=== PATIENT | male | born 1975 | race Caucasian/White ===

== ENCOUNTER 2022-10-20 12:59 | Outpatient (CLI) | payer OTHER, SELFPAY ==
[2022-10-20 13:57] LABS: Chloride* 96 mmol/L (96-114); Potassium* 4.6 mmol/L (3.6-5.1); Sodium* 132 mmol/L (135-149)
[2022-10-20 14:00] LABS: Alanine Aminotransferase* 80 U/L (4-50); Blood Urea Nitrogen* 12 mg/dL (5-24); Calcium* 8.9 mg/dL (8.4-10.6); Carbon Dioxide* 32 mmol/L (20-32); Cholesterol* 129 mg/dL (90-199); Creatinine* 0.7 mg/dL (0.5-1.5); Estimated Glomerular Filt Rate 114 ml/min; Glucose* 189 mg/dL (60-115); Triglycerides* 121 mg/dL (40-149)
[2022-10-20 14:01] LABS: HDL Cholesterol* 62 mg/dL (>=40); LDL Cholesterol Calculated 43 mg/dL (<100)
== END 2022-10-20 13:00 | disposition home or self-care (01) ==
PROVIDERS: PCP Family Medicine; Visit Provider Family Medicine
DX: I10 Essential (primary) hypertension (principal); E78.5 Hyperlipidemia, unspecified; E11.9 Type 2 diabetes mellitus without complications
CPT/HCPCS: 80048; 80061; 84460

== ENCOUNTER 2022-11-02 08:49 | Inpatient (IN) | payer OTHER, SELFPAY ==
[2022-11-02] VITALS (43 sets, daily range): BP systolic 56–121; BP diastolic 21–104; PULSE 74–191; RESP 14–26; TEMP 36.1–36.8; O2SAT 90–96; BMI 35.9; BMI 36.5
--- NOTE | 2022-11-02 08:59 | CRLHL7_ITS ---
For Patients: As a result of the Cures Act, medical imaging exams and procedure reports are released immediately into your electronic medical record. You may view this report before your referring provider. If you have questions, please contact your health care provider. INDICATION: SHORT OF BREATH TECHNIQUE: Chest 2 views COMPARISON: None FINDINGS: The cardiac silhouette is mildly prominent. Trachea midline. Vascular calcifications. No pleural effusion. No pneumothorax. No fracture. Lung volumes are mildly increased and there is mild bronchial wall thickening. No pulmonary edema. IMPRESSION: Suggestion of bronchiolitis with air-trapping. Dictated by Vincenzo Florentino MD @ 11/02/2022 9:36:43 AM (Electronically Signed)
--- NOTE | 2022-11-02 09:11 | ED.SOB ---
HPI - SOB/Dyspnea General Date Seen: 11/02/22 Chief Complaint: Shortness of Breath/Dyspnea Stated Complaint: A-fib Time Seen by Provider: 11/02/22 08:53 Source: patient Mode of arrival: ambulatory Limitations: no limitations History of Present Illness HPI Narrative: Patient is a 47-year-old gentleman who presents here with 2-3 day history of shortness of breath, he is a little unclear when this exactly started, he went to see his primary care doctor who found that he was in what looked like rapid atrial fibrillation at 169 beats per minute. He was then brought over to the emergency room for further assessment. He tells me he has no chest pain, and can not really tell that his heart is going fast, but feels more fatigued shortness of breath when he is walking around. Tells me he has never before had atrial fibrillation but does note that his legs seem more swollen in the last few days. Has been able to work, as he works construction. He has had no cough associated with this no fevers no chills, does have a history of a dilated aorta, on echo last year. Does drink anywhere from 2-4 beers per day. Smokes 1-1 and half packs per day for the last 20+ years. Also history of diabetes. His mother had a history of valvular problems but he does not remember anyone in the family having any coronary artery disease. Denies any fevers chills or sweats sore throat URI type symptoms, nausea vomiting, abdominal pain, pleuritic pain, recent travel history, past history of DVTs or pulmonary emboli. Related Data Home Medications Medication Instructions Recorded Confirmed sildenafil 100 mg tablet 50 - 100 mg PO PRN 10/20/22 11/02/22 Previous Rx's Medication Instructions Recorded atorvastatin 20 mg tablet 20 mg PO QDAY #90 tabs 10/20/22 losartan 50 mg-hydrochlorothiazide 1 tab PO DAILY #90 tabs 10/20/22 12.5 mg tablet metformin 500 mg tablet,extended 2,000 mg PO QPM #360 tabs 10/20/22 release 24 hr albuterol sulfate 90 mcg/actuation 2 puff inhalation Q4-6H PRN 10/21/22 aerosol inhaler (Ventolin HFA) shortness of breath or wheezing #8.5 grams Allergies Allergy/AdvReac Type Severity Reaction Status Date / Time No Known Drug Allergies Allergy Verified 11/02/22 09:00 Review of Systems Status of ROS: Reports: 10 or more systems reviewed and unremarkable except as noted in History and below [facility] Medical History (Updated 11/02/22 @ 11:45 by Kayla Manzanares MD) Atrial fibrillation with RVR Chronic pain of left ankle COPD (chronic obstructive pulmonary disease) Daily consumption of alcohol Erectile dysfunction (09/25/14) Heart murmur Hyperlipidemia Hypertension (09/13/14) Tobacco abuse (11/22/14) Type 2 diabetes mellitus without complications Surgical History History of foot surgery (09/2015) History of vasectomy (2007) Family History Mother Breast cancer Heart disease Maternal Grandfather Heart disease Brother Cystic fibrosis Diabetes Social History (Updated 11/02/22 @ 11:26 by Kayla Manzanares MD) Narrative: , 2 kids, 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 1 ppd smoker, daily ETOH (5-6 drinks) Smoking Status: Current every day smoker What tobacco products do you use: cigarettes Smoking packs per day: 1 Smoking cigarettes per day: 20.0 Do you use any of these nicotine containing products: None Second hand tobacco smoke exposure: Yes How often do you have a drink containing alcohol: 4 or more times a week How many standard drinks containing alcohol do you have on a typical day: 3 or 4 How often do you have six or more drinks on one occasion: Weekly AUDIT-C Alcohol total score: 8 Non-prescribed substance use: denies use Little interest or pleasure in doing things: not at all Feeling down, depressed, or hopeless: several days service: No Exam Narrative: Exam Narrative: Patient is seen in room 8, he is in no distress, speaking to me in full sentences, vital signs show the rapid heart rate, slightly elevated respiratory rate Pupils are equal round reactive to light, oropharynx is normal, cranial nerves 3-12 are normal, TMs are normal, neck is thick, BMI elevated, significantly into the morbid obese category. Chest is good air entry bilaterally with no crackles, but there is occasional wheezes heard throughout his lungs. Heart sounds are distant faint but S1-S2 is normal, I can not detect with this rapid heart rate any obvious murmurs, no S3-S4, abdomen is soft and obese, no guarding no organomegaly no tenderness noted. Extremities show 1 to 2+ edema bilaterally. Moves all extremities independently and well neurologically intact both upper lower extremities are normal, with normal power proximally and distally normal sensation. Const: Vital Signs, click to edit/add: Vital Signs - 24 hr 11/02/22 08:51 11/02/22 09:21 11/02/22 09:30 Temperature 98.3 F Pulse Rate 158 H 154 H Pulse Rate [Apical ] 151 H Respiratory Rate 26 H Blood Pressure Blood Pressure [Le ft Upper Arm] 121/104 H Pulse Oximetry 93 94 93 Oxygen Delivery Me thod Room Air 11/02/22 09:32 11/02/22 09:45 11/02/22 10:00 Temperature Pulse Rate 164 H 156 H 169 H Pulse Rate [Apical ] Respiratory Rate Blood Pressure 111/98 H Blood Pressure [Le ft Upper Arm] Pulse Oximetry 93 93 93 Oxygen Delivery Me thod 11/02/22 10:02 11/02/22 11:10 11/02/22 10:03 Temperature Pulse Rate 121 H 120 H Pulse Rate [Apical ] 134 H Respiratory Rate 20 Blood Pressure 100/89 Blood Pressure [Le ft Upper Arm] 110/76 Pulse Oximetry 93 95 92 Oxygen Delivery Me thod Room Air 11/02/22 10:15 11/02/22 10:30 11/02/22 10:32 Temperature Pulse Rate 191 H 124 H 103 H Pulse Rate [Apical ] Respiratory Rate Blood Pressure 94/70 Blood Pressure [Le ft Upper Arm] Pulse Oximetry 95 92 93 Oxygen Delivery Me thod 11/02/22 10:36 11/02/22 10:37 11/02/22 10:45 Temperature Pulse Rate 114 H 111 H 102 H Pulse Rate [Apical ] Respiratory Rate Blood Pressure 84/23 L 85/69 L Blood Pressure [Le ft Upper Arm] Pulse Oximetry 93 93 94 Oxygen Delivery Me thod 11/02/22 11:00 11/02/22 11:06 11/02/22 11:13 Temperature Pulse Rate 134 H 108 H 107 H Pulse Rate [Apical ] Respiratory Rate Blood Pressure 70/59 L 100/76 Blood Pressure [Le ft Upper Arm] Pulse Oximetry 95 94 95 Oxygen Delivery Me thod 11/02/22 11:15 Temperature Pulse Rate 108 H Pulse Rate [Apical ] Respiratory Rate Blood Pressure Blood Pressure [Le ft Upper Arm] Pulse Oximetry 90 Oxygen Delivery Me thod Course Reevaluation(s) Reevaluation #1: Initial troponin is negative, his D dimer is slightly elevated, 0.52, I will go ahead and give him another dosage of of diltiazem for a total now 20 mg IV will given a g of magnesium as he is low normal at 1.6, 2 L of fluid, good kidney function, he has improved his rate down to the 121 30s, still in atrial fibrillation. Time: 11:00 Reevaluation #2: Discussed with patient with hospitalist, will admit to the hospital, pressure is now better systolic around 100, hospitalist is requesting PE study, we will go ahead and get this done. Admission to the hospital for ongoing care, Time: 11:48 Vital Signs Vital signs: Initial Vital Signs Temperature 98.3 F 11/02/22 08:51 Temperature Source Temporal Artery Scan 11/02/22 08:51 Pulse Rate 151 H 11/02/22 08:51 Pulse Rhythm 11/02/22 08:51 Respiratory Rate 26 H 11/02/22 08:51 Blood Pressure 121/104 H 11/02/22 08:51 Blood Pressure Mean 109 11/02/22 08:51 Blood Pressure Position Supine 11/02/22 08:51 Pulse Oximetry 93 11/02/22 08:51 Oxygen Delivery Method 11/02/22 08:51 Vital Signs Temperature 98.3 F 11/02/22 08:51 Pulse Rate 151 H 11/02/22 08:51 Respiratory Rate 26 H 11/02/22 08:51 Blood Pressure 121/104 H 11/02/22 08:51 Pulse Oximetry 93 11/02/22 08:51 Oxygen Delivery Method 11/02/22 08:51 Temperature 98.3 F 11/02/22 08:51 Pulse Rate 108 H 11/02/22 11:15 Respiratory Rate 20 11/02/22 11:10 Blood Pressure 100/76 11/02/22 11:13 Pulse Oximetry 90 11/02/22 11:15 Oxygen Delivery Method 11/02/22 11:10 MDM - SOB/Dyspnea MDM Narrative Medical decision making narrative: Life-threatening differential diagnosis includes occluded COPD exacerbation, pulmonary edema, acute coronary syndromes, pulmonary embolism, pneumonia, and pneumothorax. Other differential diagnosis considerations include asthma, bronchitis as well as other etiologies Differential Diagnosis Differential diagnosis: Likely acute exacerbation of chronic obstructive airways disease, congestive heart failure, community acquired pneumonia, asthma with exacerbation and pulmonary embolism Medical Records Attestation: I reviewed the patient's medical records. Lab Data Attestation: I reviewed the patient's lab results. Labs: Lab Results 11/02/22 11/02/22 11/02/22 Range/Units 09:00 09:00 09:00 WBC 5.83 (4.50-11.00) K/uL RBC 4.25 L (4.30-5.90) m/uL Hgb 14.4 (13.5-17.5) gm/dL Hct 43.2 (37.0-53.0) % MCV 102 H (80-100) fL MCH 34 (26-34) pg MCHC 33 (32-36) gm/dL RDW Coeff of Kay 11.8 (11.5-15.5) % Plt Count 212 (140-440) K/uL Neut % (Auto) 72.2 H (42.0-72.0) % Lymph % (Auto) 17.0 L (20-44) % [place] % (Auto) 10.1 (0.0-11.0) % Eos % (Auto) 0.3 (0.0-7.0) % Baso % (Auto) 0.2 (0.0-3.0) % Neut # (Auto) 4.20 (1.7-7.0) K/uL Lymph # (Auto) 1.00 (0.90-2.90) K/uL [place] # (Auto) 0.60 (0.00-0.90) K/UL Eos # (Auto) 0.02 (0.00-0.50) K/uL Baso # (Auto) 0.01 (0.00-0.30) K/uL APTT 28 (23-33) Seconds D-Dimer Quant (PE/DVT) 0.52 H (0.00-0.50) ug/ml Sodium 132 L (135-149) mmol/L Potassium 4.4 (3.6-5.1) mmol/L Chloride 99 (96-114) mmol/L Carbon Dioxide 24 (20-32) mmol/L BUN 18 (5-24) mg/dL Creatinine 0.9 (0.5-1.5) mg/dL Estimated Creat Clear 117.97 Estimated GFR 106 ml/min Glucose 285 H (60-115) mg/dL Calcium 8.8 (8.4-10.6) mg/dL Magnesium (1.5-2.6) mg/dL NT-Pro-B Natriuret Pep 1470 pg/mL TSH (0.270-4.20) uIU/mL SARS-CoV-2 (PCR) (Negative) Influenza Type A (PCR) (Negative) Influenza Type B (PCR) (Negative) RSV (PCR) (Negative) POC Troponin I (0.01-0.04) ng/ml 11/02/22 11/02/22 11/02/22 Range/Units 09:00 09:00 09:00 WBC (4.50-11.00) K/uL RBC (4.30-5.90) m/uL Hgb (13.5-17.5) gm/dL Hct (37.0-53.0) % MCV (80-100) fL MCH (26-34) pg MCHC (32-36) gm/dL RDW Coeff of Kay (11.5-15.5) % Plt Count (140-440) K/uL Neut % (Auto) (42.0-72.0) % Lymph % (Auto) (20-44) % [place] % (Auto) (0.0-11.0) % Eos % (Auto) (0.0-7.0) % Baso % (Auto) (0.0-3.0) % Neut # (Auto) (1.7-7.0) K/uL Lymph # (Auto) (0.90-2.90) K/uL [place] # (Auto) (0.00-0.90) K/UL Eos # (Auto) (0.00-0.50) K/uL Baso # (Auto) (0.00-0.30) K/uL APTT (23-33) Seconds D-Dimer Quant (PE/DVT) (0.00-0.50) ug/ml Sodium (135-149) mmol/L Potassium (3.6-5.1) mmol/L Chloride (96-114) mmol/L Carbon Dioxide (20-32) mmol/L BUN (5-24) mg/dL Creatinine (0.5-1.5) mg/dL Estimated Creat Clear Estimated GFR ml/min Glucose (60-115) mg/dL Calcium (8.4-10.6) mg/dL Magnesium 1.6 (1.5-2.6) mg/dL NT-Pro-B Natriuret Pep pg/mL TSH 3.650 (0.270-4.20) uIU/mL SARS-CoV-2 (PCR) (Negative) Influenza Type A (PCR) (Negative) Influenza Type B (PCR) (Negative) RSV (PCR) (Negative) POC Troponin I 0.02 (0.01-0.04) ng/ml 11/02/22 11/02/22 Range/Units 09:15 11:00 WBC (4.50-11.00) K/uL RBC (4.30-5.90) m/uL Hgb (13.5-17.5) gm/dL Hct (37.0-53.0) % MCV (80-100) fL MCH (26-34) pg MCHC (32-36) gm/dL RDW Coeff of Aky (11.5-15.5) % Plt Count (140-440) K/uL Neut % (Auto) (42.0-72.0) % Lymph % (Auto) (20-44) % [place] % (Auto) (0.0-11.0) % Eos % (Auto) (0.0-7.0) % Baso % (Auto) (0.0-3.0) % Neut # (Auto) (1.7-7.0) K/uL Lymph # (Auto) (0.90-2.90) K/uL [place] # (Auto) (0.00-0.90) K/UL Eos # (Auto) (0.00-0.50) K/uL Baso # (Auto) (0.00-0.30) K/uL APTT (23-33) Seconds D-Dimer Quant (PE/DVT) (0.00-0.50) ug/ml Sodium (135-149) mmol/L Potassium (3.6-5.1) mmol/L Chloride (96-114) mmol/L Carbon Dioxide (20-32) mmol/L BUN (5-24) mg/dL Creatinine (0.5-1.5) mg/dL Estimated Creat Clear Estimated GFR ml/min Glucose (60-115) mg/dL Calcium (8.4-10.6) mg/dL Magnesium (1.5-2.6) mg/dL NT-Pro-B Natriuret Pep pg/mL TSH (0.270-4.20) uIU/mL SARS-CoV-2 (PCR) Negative SARS-CoV-2 (Negative) Influenza Type A (PCR) Negative PCR FLU A (Negative) Influenza Type B (PCR) Negative PCR FLU B (Negative) RSV (PCR) Negative PCR RSV (Negative) POC Troponin I 0.00 L (0.01-0.04) ng/ml Imaging Data CT scan - chest: Attestation: I have reviewed the pertinent imaging results. My impression: Chest x-ray shows cardiomegaly but no other clear findings, I also ordered that chest PE study which showed bilateral pleural effusions I do not see evidence of pulmonary embolism. ECG Data Attestation: I personally reviewed and interpreted this ECG as follows: ECG interpretation date: 11/02/22 Interpretation: EKG shows atrial fibrillation with rapid ventricular response at 167, normal QRS normal QT QT and VT intervals, no acute ST wave changes, noted. I also reviewed the clinic EKG, there is a nonspecific T-wave abnormality notable on both tracings Critical Care Time Critical Care Time Critical Care Time: Yes Attestation: The patient required my highest level preparedness to intervene emergently and I personally spent this critical care time directly and personally managing the patient. This critical care time included: Obtaining a history; Examining the patient; Pulse oximetry; Ordering and reviewing of studies; Arranging urgent treatment with development of a management plan; Evaluation of patients response to treatment; Frequent reassessment discussions with other providers. This critical care time was performed to assess and manage the high probability of imminent life-threatening deterioration that could result in multiorgan failure. It was exclusive of separate billable procedures and treating other patients and teaching time. Total Critical Care Time in Minutes: 60 Discharge Plan Discharge Clinical Impression: Hypotension, Atrial fibrillation with RVR Patient Disposition: Admitted As Inpatient Condition: Stable
[2022-11-02 09:16] LABS: Troponin, Point-of-Care* 0.02 ng/ml (0.01-0.04)
[2022-11-02] MEDS: ASPIRIN 81 MG TAB.CHEW 324 MG PO (09:24)
[2022-11-02] MEDS: 0.9 % SODIUM CHLORIDE 1000 ml 1,000 ML IV ×3 (09:25→21:15)
[2022-11-02 09:26] LABS: Basophils Absolute Auto 0.01 K/uL (0.00-0.30); Basophils Percent Auto 0.2 % (0.0-3.0); Eosinophils Absolute Auto 0.02 K/uL (0.00-0.50); Eosinophils Percent Auto 0.3 % (0.0-7.0); Hematocrit 43.2 % (37.0-53.0); Hemoglobin* 14.4 gm/dL (13.5-17.5); Immature Granulocytes Abs Auto 0.01 K/uL (0.00-0.30); Immature Granulocytes Pct Auto 0.2 %; Mean Corpuscular HGB Conc 33 gm/dL (32-36); Mean Corpuscular Hemoglobin 34 pg (26-34); Mean Corpuscular Volume 102 fL (80-100); Monocytes Percent Auto 10.1 % (0.0-11.0); Neutrophils Percent Auto 72.2 % (42.0-72.0); Platelet Count* 212 K/uL (140-440); RDW Coefficient of Variation % 11.8 % (11.5-15.5); Red Blood Count 4.25 m/uL (4.30-5.90); White Blood Count* 5.83 K/uL (4.50-11.00)
[2022-11-02 09:34] LABS: Slide Review Reflex No
[2022-11-02 09:42] LABS: Chloride* 99 mmol/L (96-114); Sodium* 132 mmol/L (135-149)
[2022-11-02 09:43] LABS: Potassium* 4.4 mmol/L (3.6-5.1)
[2022-11-02] MEDS: dilTIAZem 5 MG/ML inj 10 MG IVP ×2 (09:44→10:20)
[2022-11-02 09:45] LABS: Carbon Dioxide* 24 mmol/L (20-32); Creatinine* 0.9 mg/dL (0.5-1.5); Est. Creatinine Clearance* 117.97; Estimated Glomerular Filt Rate 106 ml/min
[2022-11-02 09:46] LABS: Blood Urea Nitrogen* 18 mg/dL (5-24); Calcium* 8.8 mg/dL (8.4-10.6); Glucose* 285 mg/dL (60-115); Magnesium* 1.6 mg/dL (1.5-2.6)
[2022-11-02 09:55] LABS: Partial Thromboplastin Time* 28 Seconds (23-33)
[2022-11-02 09:57] LABS: D Dimer Quantitative* 0.52 ug/ml (0.00-0.50); NT Pro B Type NatriureticPept* 1470 pg/mL
[2022-11-02 10:26] LABS: PCR FLU A Negative PCR FLU A (Negative); PCR FLU B Negative PCR FLU B (Negative); PCR RSV Negative PCR RSV (Negative)
[2022-11-02 10:28] LABS: SARS PCR* Negative SARS-CoV-2 (Negative)
--- NOTE | 2022-11-02 10:58 | ED.NURSE ---
dr marsh was informed of bp 85/69 p 110. he did speak to naty and his .
--- NOTE | 2022-11-02 11:04 | CRLHL7_ITS ---
For Patients: As a result of the Century Cures Act, medical imaging exams and procedure reports are released immediately into your electronic medical record. You may view this report before your referring provider. If you have questions, please contact your health care provider. INDICATION: Shortness of breath, atrial fibrillation. TECHNIQUE: CT chest PE was acquired with 95 cc Omnipaque 350 IV contrast. COMPARISON: None. FINDINGS: Heart and vasculature: Contrast opacification of the pulmonary arterial tree is adequate. No sign of pulmonary embolism. Prominent heart size.. Thoracic aorta and pulmonary artery are normal in caliber. Aortic arch and coronary artery calcifications Lungs and pleura: Peribronchial thickening, greatest in the right lower lobe. No focal consolidations. Small bilateral pleural effusions with compressive atelectasis. No pneumothorax Lymph nodes/mediastinum: Calcified mediastinal and right hilar granulomas. Mildly prominent mediastinal lymph nodes, likely reactive. No mediastinal, hilar, or axillary adenopathy. Chest wall: No masses. Upper abdomen: No acute or significant findings. Bones: Degenerative changes. IMPRESSION: No pulmonary embolism, as questioned. Small bilateral pleural effusions with compressive atelectasis. Peribronchial thickening, greatest in the right lower lobe which could suggest bronchitis. No focal consolidations. Cardiomegaly with coronary artery calcifications. Please note that all CT scans at this facility use dose modulation, iterative reconstruction, and/or weight-based dosing when appropriate to reduce radiation dose to as low as reasonably achievable. Dictated by Sander Munoz MD @ 11/02/2022 12:16:05 PM (Electronically Signed)
--- NOTE | 2022-11-02 11:07 | ED.NURSE ---
dr marsh aware of bp 70/59 . p121.r 22.
--- NOTE | 2022-11-02 11:12 | ED.NURSE ---
100/76 p 115.
--- NOTE | 2022-11-02 11:25 | PM.IMHP1 ---
Hospitalist- H&P: HPI History of Present Illness Date Seen: 11/02/22 Chief complaint: A-fib Narrative: Wilfrido Sears is a 47 year old male who presented to the emergency room with his after presenting to the clinic for a 2-3 week history of worsening dyspnea. Patient has noted feeling short of breath with activity for a few weeks, saw his PCP earlier this month (pulse at that time noted to be 80) and was given an inhaler. This has not been consistently effective. Over the past few days, dyspnea has worsened and he has difficulty with ADLs, even getting short of breath putting on his boots. In addition, he has noted lower extremity edema bilaterally, up to mid-thigh (began 5 days ago, during a road trip to [place] to watch his daughter play volleyball). No associated chest pain. No orthopnea, + PND. Given how poorly he was feeling, he went to see Dr. Fox in the clinic this morning, who noted that his heart rate was in the 160s and sent patient to the emergency room. ER course and findings: - EKG exhibited a fib with RVR - given diltiazem with improvement in heart rate from 169 --> 120s - troponin negative, D-dimer elevated - CT PE performed with results: IMPRESSION: No pulmonary embolism, as questioned. Small bilateral pleural effusions with compressive atelectasis. Peribronchial thickening, greatest in the right lower lobe which could suggest bronchitis. No focal consolidations. Cardiomegaly with coronary artery calcifications. 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 Smokes 1ppd. Patient notes daily ETOH use, states last drink was , 10/28 (didn't drink over the weekend 09/16 not feeling well. questioned this during H&P, believed patient had ETOH as recently as 11/01). Medical history updated below. PCP is Dr. Bautista locally. Review of Systems Status of ROS: Reports: 10 or more systems reviewed and unremarkable except as noted in History and below [facility] Medical History (Updated 11/02/22 @ 12:41 by Kayla Manzanares MD) Atrial fibrillation with RVR Chronic pain of left ankle COPD (chronic obstructive pulmonary disease) Daily consumption of alcohol Erectile dysfunction (09/25/14) Heart murmur Hyperlipidemia Hypertension (09/13/14) Tobacco abuse (11/22/14) Type 2 diabetes mellitus without complications Surgical History History of foot surgery (09/2015) History of vasectomy (2007) Family History (Updated 11/02/22 @ 12:03 by Kayla Manzanares MD) Mother Breast cancer Heart disease CHF (congestive heart failure) Maternal Grandfather Heart disease Brother Cystic fibrosis Diabetes Social History (Updated 11/02/22 @ 11:26 by Kayla Manzanares MD) Narrative: , 2 kids, 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 1 ppd smoker, daily ETOH (5-6 drinks) Highest level of school completed/degree received: high school graduate Smoking Status: Current every day smoker What tobacco products do you use: cigarettes Smoking packs per day: 1 Smoking cigarettes per day: 20.0 Years smoked: 31 Smoking pack-years: 31.00 Do you use any of these nicotine containing products: None Second hand tobacco smoke exposure: Yes How often do you have a drink containing alcohol: 4 or more times a week Alcohol type: beer How many standard drinks containing alcohol do you have on a typical day: 3 or 4 How often do you have six or more drinks on one occasion: Weekly AUDIT-C Alcohol total score: 8 Non-prescribed substance use: denies use Caffeine: Yes (rarely) Little interest or pleasure in doing things: not at all Feeling down, depressed, or hopeless: several days service: No Meds Home Medications and Allergies Home Medications Medication Instructions Recorded Confirmed Type sildenafil 100 mg tablet 50 - 100 mg PO PRN 10/20/22 11/02/22 History Home Medication Comments: List above is incorrect: patient on 2000mg of Metformin daily (recent increase), Losartan 50-HCTZ 12.5, Atorvastatin 20, prn Albuterol Allergies Allergy/AdvReac Type Severity Reaction Status Date / Time No Known Drug Allergies Allergy Verified 11/02/22 09:00 Exam Narrative: Exam Narrative: GEN: Alert and oriented, answering questions appropriately HEENT: EOMIs bilaterally, no scleral icterus CV: Irregular rhythm, rate in the 110s R: LCTA bilaterally without concerning wheezing Ab: Protuberant, no concerning masses or ttp Ext: 2-3+ pitting edema bilateral LEs Skin: Punctate erythematous rash of LLE, no other concerning findings on exposed skin Neuro: No focal deficits Psych: Appropriate Const: Vital Signs, click to edit/add: Vital Signs - 24 hr 11/02/22 08:51 11/02/22 09:21 11/02/22 09:30 Temperature 98.3 F Pulse Rate 158 H 154 H Pulse Rate [Apical ] 151 H Respiratory Rate 26 H Blood Pressure Blood Pressure [Le ft Upper Arm] 121/104 H Pulse Oximetry 93 94 93 Oxygen Delivery Me thod Room Air 11/02/22 09:32 11/02/22 09:45 11/02/22 10:00 Temperature Pulse Rate 164 H 156 H 169 H Pulse Rate [Apical ] Respiratory Rate Blood Pressure 111/98 H Blood Pressure [Le ft Upper Arm] Pulse Oximetry 93 93 93 Oxygen Delivery Me thod 11/02/22 10:02 11/02/22 11:10 11/02/22 10:03 Temperature Pulse Rate 121 H 120 H Pulse Rate [Apical ] 134 H Respiratory Rate 20 Blood Pressure 100/89 Blood Pressure [Le ft Upper Arm] 110/76 Pulse Oximetry 93 95 92 Oxygen Delivery Me od Room Air 11/02/22 10:15 11/02/22 10:30 11/02/22 10:32 Temperature Pulse Rate 191 H 124 H 103 H Pulse Rate [Apical ] Respiratory Rate Blood Pressure 94/70 Blood Pressure [Le ft Upper Arm] Pulse Oximetry 95 92 93 Oxygen Delivery Me thod 11/02/22 10:36 11/02/22 10:37 11/02/22 10:45 Temperature Pulse Rate 114 H 111 H 102 H Pulse Rate [Apical ] Respiratory Rate Blood Pressure 84/23 L 85/69 L Blood Pressure [Le ft Upper Arm] Pulse Oximetry 93 93 94 Oxygen Delivery Me thod 11/02/22 11:00 11/02/22 11:06 11/02/22 11:13 Temperature Pulse Rate 134 H 108 H 107 H Pulse Rate [Apical ] Respiratory Rate Blood Pressure 70/59 L 100/76 Blood Pressure [Le ft Upper Arm] Pulse Oximetry 95 94 95 Oxygen Delivery Me thod 11/02/22 11:15 Temperature Pulse Rate 108 H Pulse Rate [Apical ] Respiratory Rate Blood Pressure Blood Pressure [Le ft Upper Arm] Pulse Oximetry 90 Oxygen Delivery Me od Hospitalist - H&P: Result Labs Labs: Short CBC 11/02/22 Range/Units 09:00 WBC 5.83 (4.50-11.00) K/uL Hgb 14.4 (13.5-17.5) gm/dL Hct 43.2 (37.0-53.0) % Plt Count 212 (140-440) K/uL BMP 11/02/22 09:00 Sodium 132 L Potassium 4.4 Chloride 99 Carbon Dioxide 24 BUN 18 Creatinine 0.9 Glucose 285 H Calcium 8.8 Assessment and Plan Assessment and plan (1) Atrial fibrillation with RVR: Problem comment: - admit to CCU, start oral Diltiazem, prn IV rate control, monitor BP closely - [id number] score of 3, amenable to anticoagulation after risk/benefit discussion, will initiate Apixaban - TTE 11/02 Status: Acute (2) Hypotension: Problem comment: - noted in ED, combination of a fib with RVR + iatrogenic - no evidence of acute illness, afebrile with normal white count - hold home Losartan-HCTZ Status: Acute (3) Type 2 diabetes mellitus without complications: Problem comment: - last A1C 04/18 (10/2022) - accuchecks and SSI, continue home Metformin Status: Chronic (4) Hyperlipidemia: Problem comment: - continue home statin dose Status: Acute (5) Tobacco abuse: Problem comment: - 1 ppd, amenable to patch during stay Status: Acute (6) Daily consumption of alcohol: Problem comment: - with noted sequela of elevated MCV and elevated LFTs - no history of withdrawal (states last drink 10/28) - CIWAs ordered Status: Acute (7) CHF (congestive heart failure): Problem comment: - likely has an element of CHF exacerbation given AFib and edema - Last TTE 08/2021 with results below, will repeat TTE 11/02/22 Final Impressions: 1. Mildly increased LV size, mildly increased wall thickness, mildly reduced global systolic function with an estimated EF of ~50%. 2. Right ventricular cavity size is normal, global systolic RV function is borderline reduced. 3. The aortic sinus is dilated with a maximal diameter of 3.9 cm. Status: Acute (8) Bronchitis: Problem comment: - RLL on 11/02 imaging - likely viral, will not initiate antibiotics on admission, monitor closely Status: Acute Plan - per above - Apixaban for ppx - requests full code status - updated at bedside, questions answered
--- NOTE | 2022-11-02 11:45 | ED.NURSE ---
report was called to angie israel. did get ct scan done.
[2022-11-02] MEDS: NICOTINE 14 mg PATCH 1 PATCH TRANSDERMA (12:39)
[2022-11-02] MEDS: dilTIAZem 30 MG TABLET PO (12:39)
[2022-11-02] MEDS: THIAMINE 100 MG TABLET PO (12:40)
[2022-11-02] MEDS: ATORVASTATIN 10 MG TABLET 20 MG PO ×2 (13:01→21:41)
[2022-11-02] MEDS: dilTIAZem 30 MG TABLET 60 MG PO ×2 (13:14→17:44)
--- NOTE | 2022-11-02 13:22 | PC.NURSE ---
Addendum entered by Sharee Mata RN 11/02/22 14:09: Diltiazem gtt started at 10 mg/hr see OCT and also vital signs charted. Original Note: End of Shift Note: Patient was admitted from the ER. He was seen previously in the clinic and sent to the ER after noted a high heart rate. Patient is alert and orientated. Has received several doses of diltiazem trying to control his heart rate. Will continue to monitor.
[2022-11-02] MEDS: dilTIAZem HCL 125 MG in 0.9 % SODIUM CHLORIDE 100 ml 100 ML 10 MG IVPB (14:06)
--- NOTE | 2022-11-02 15:50 | RESP.RT ---
Pt seen and evaluated. Of concern pt is using MDI (Albuterol) every 4-6 hours every day. BBS diminished, no wheezing noted. PT is on 1L NC for comfort of Shortness of Breath. Pt has not had a sleep study. CXR and CT noted. Pt up in chair as much as possible. Pt needs a pulmonary work up, with pulmonary function tests to optimize diagnosis and classification with appropriate prescribed medications. Would start on combivent, and a steroid inhaler.
[2022-11-02] MEDS: PERFLUTREN LIPID MICROSPHERES 2 ML VIAL IV (17:19)
[2022-11-02] MEDS: METFORMIN ER 500 MG 2000 MG PO (17:45)
--- NOTE | 2022-11-02 18:43 | PC.NURSE ---
End of Shift:? Pt has been very pleasant. no pain.? Patient is alert and orientated.? he got po diltiazem trying to control his heart rate. .Diltiazem gtt at 10 mg/hr. IV is patent and SL is also patent,. Tele shows A Fib. bs was 229 and he got po and Insulin. he is eating, drinking and voiding. he is up with SBA he is on 1 L NC for SOB inhaler at bedside per md order,. RT did come to see him
[2022-11-02 18:50] LABS: Troponin I* 0.02 ng/mL (0.01-0.04)
[2022-11-02] MEDS: METOPROLOL TARTRATE 1 MG/ML inj 5 MG IVP (20:22)
[2022-11-02] MEDS: ACETAMINOPHEN 325 MG TABLET 975 MG PO (21:26)
[2022-11-02] MEDS: APIXABAN 5 MG TABLET PO (21:41)
[2022-11-02] MEDS: SODIUM CHLORIDE 0.9 % (FLUSH) 10 ML SYRINGE 5 ML IVF ×2 (21:42→22:44)
--- NOTE | 2022-11-02 21:48 | P.IMPN_ITS ---
Progress Note: A&P Assessment and plan (1) Atrial fibrillation with RVR: Problem details: - admit to CCU, start oral Diltiazem, prn IV rate control, monitor BP closely - [id number] score of 3, amenable to anticoagulation after risk/benefit discussion, will initiate Apixaban - TTE 11/02 - I have ordered metoprolol orally with hold parameters and have discontinued oral diltiazem. The diltiazem drip has also been stopped. Status: Acute Subjective Time Seen by Provider: 19:20 Date Seen: 11/02/22 Interval history: Wilfrido has been on dilt drip at 10 this afternoon/evening. He got a dose of 60mg oral diltiazem at 5:45pm. His HR before that was 107, and it was unchanged at 8pm, so I ordered a dose of IV metoprolol 5 mg. His HR immediately came under control to the 70's. BP remained stable until a little over an hour later when his SBP was in the 50's and he was diaphorhetic. His nurse called me and I arrived at his room within 2 minutes. We put [place] in [place], stopped the diltiazem gtt, and gave a 1L NS bolus. He felt better and SBP came up to 100's. He was no longer diaphorhetic. HR remained 70s-80s. Exam Narrative: Exam Narrative: Initially diaphorhetic with slow speech. This resolved quickly and he is now AAOx3 sitting up, talkative, good color, no pallor. CV: Irregularly irregular, not tachycardic. Const: Vital Signs, click to edit/add: Vital Signs - 24 hr 11/02/22 08:51 11/02/22 09:21 11/02/22 09:30 Temperature 98.3 F Pulse Rate 158 H 154 H Pulse Rate [Apical ] 151 H Pulse Rate [Left B rachial] Pulse Rate [Right Radial] Respiratory Rate 26 H Blood Pressure Blood Pressure [Le ft Arm] Blood Pressure [Le ft Upper Arm] 121/104 H Pulse Oximetry 93 94 93 Oxygen Delivery Me thod Room Air Oxygen Flow Rate 11/02/22 09:32 11/02/22 09:45 11/02/22 10:00 Temperature Pulse Rate 164 H 156 H 169 H Pulse Rate [Apical ] Pulse Rate [Left B rachial] Pulse Rate [Right Radial] Respiratory Rate Blood Pressure 111/98 H Blood Pressure [Le ft Arm] Blood Pressure [Le ft Upper Arm] Pulse Oximetry 93 93 93 Oxygen Delivery Me thod Oxygen Flow Rate 11/02/22 10:02 11/02/22 11:10 11/02/22 10:03 Temperature Pulse Rate 121 H 120 H Pulse Rate [Apical ] 134 H Pulse Rate [Left B rachial] Pulse Rate [Right Radial] Respiratory Rate 20 Blood Pressure 100/89 Blood Pressure [Le ft Arm] Blood Pressure [Le ft Upper Arm] 110/76 Pulse Oximetry 93 95 92 Oxygen Delivery Me thod Room Air Oxygen Flow Rate 11/02/22 10:15 11/02/22 10:30 11/02/22 10:32 Temperature Pulse Rate 191 H 124 H 103 H Pulse Rate [Apical ] Pulse Rate [Left B rachial] Pulse Rate [Right Radial] Respiratory Rate Blood Pressure 94/70 Blood Pressure [Le ft Arm] Blood Pressure [Le ft Upper Arm] Pulse Oximetry 95 92 93 Oxygen Delivery Me thod Oxygen Flow Rate 11/02/22 10:36 11/02/22 10:37 11/02/22 10:45 Temperature Pulse Rate 114 H 111 H 102 H Pulse Rate [Apical ] Pulse Rate [Left B rachial] Pulse Rate [Right Radial] Respiratory Rate Blood Pressure 84/23 L 85/69 L Blood Pressure [Le ft Arm] Blood Pressure [Le ft Upper Arm] Pulse Oximetry 93 93 94 Oxygen Delivery Me thod Oxygen Flow Rate 11/02/22 11:00 11/02/22 11:06 11/02/22 11:13 Temperature Pulse Rate 134 H 108 H 107 H Pulse Rate [Apical ] Pulse Rate [Left B rachial] Pulse Rate [Right Radial] Respiratory Rate Blood Pressure 70/59 L 100/76 Blood Pressure [Le ft Arm] Blood Pressure [Le ft Upper Arm] Pulse Oximetry 95 94 95 Oxygen Delivery Me thod Oxygen Flow Rate 11/02/22 11:15 11/02/22 11:58 11/02/22 12:19 Temperature 98.3 F Pulse Rate 108 H Pulse Rate [Apical ] Pulse Rate [Left B rachial] 129 H 129 H Pulse Rate [Right Radial] Respiratory Rate 14 14 Blood Pressure Blood Pressure [Le ft Arm] 101/83 101/83 Blood Pressure [Le ft Upper Arm] Pulse Oximetry 90 94 94 Oxygen Delivery Me thod Nasal Cannula Nasal Cannula Oxygen Flow Rate 1 1 11/02/22 12:52 11/02/22 13:01 11/02/22 15:34 Temperature Pulse Rate 114 H 91 Pulse Rate [Apical ] Pulse Rate [Left B rachial] Pulse Rate [Right Radial] Respiratory Rate Blood Pressure Blood Pressure [Le ft Arm] Blood Pressure [Le ft Upper Arm] Pulse Oximetry Oxygen Delivery Me thod Nasal Cannula Oxygen Flow Rate 1 11/02/22 15:37 11/02/22 15:40 11/02/22 15:41 Temperature 97.0 F L Pulse Rate Pulse Rate [Apical ] Pulse Rate [Left B rachial] 113 H Pulse Rate [Right Radial] 113 H Respiratory Rate 14 18 18 Blood Pressure Blood Pressure [Le ft Arm] 112/98 H Blood Pressure [Le ft Upper Arm] Pulse Oximetry 94 95 Oxygen Delivery Me thod Nasal Cannula Nasal Cannula Oxygen Flow Rate 1 1 11/02/22 19:00 11/02/22 19:30 11/02/22 20:00 Temperature 97.2 F L Pulse Rate Pulse Rate [Apical ] Pulse Rate [Left B rachial] Pulse Rate [Right Radial] 99 101 H 94 Respiratory Rate 18 18 18 Blood Pressure Blood Pressure [Le ft Arm] 117/96 H 98/74 103/69 Blood Pressure [Le ft Upper Arm] Pulse Oximetry 95 95 96 Oxygen Delivery Me thod Nasal Cannula Nasal Cannula Nasal Cannula Oxygen Flow Rate 1 1 1 11/02/22 20:22 11/02/22 20:28 11/02/22 20:31 Temperature Pulse Rate Pulse Rate [Apical ] Pulse Rate [Left B rachial] Pulse Rate [Right Radial] 94 112 H Respiratory Rate 18 16 Blood Pressure Blood Pressure [Le ft Arm] 95/84 94/83 90/67 Blood Pressure [Le ft Upper Arm] Pulse Oximetry 94 93 Oxygen Delivery Me thod Nasal Cannula Nasal Cannula Oxygen Flow Rate 1 1 11/02/22 20:40 11/02/22 20:35 Temperature Pulse Rate Pulse Rate [Apical ] Pulse Rate [Left B rachial] Pulse Rate [Right Radial] 74 74 Respiratory Rate 16 16 Blood Pressure Blood Pressure [Le ft Arm] 84/70 L 96/63 Blood Pressure [Le ft Upper Arm] Pulse Oximetry 96 94 Oxygen Delivery Me thod Nasal Cannula Nasal Cannula Oxygen Flow Rate 1 1 Labs Labs: Laboratory Results - last 24 hr 11/02/22 11/02/22 11/02/22 09:00 09:00 09:00 WBC 5.83 RBC 4.25 L Hgb 14.4 Hct 43.2 MCV 102 H MCH 34 MCHC 33 RDW Coeff of Kay 11.8 Plt Count 212 Neut % (Auto) 72.2 H Lymph % (Auto) 17.0 L [place] % (Auto) 10.1 Eos % (Auto) 0.3 Baso % (Auto) 0.2 Neut # (Auto) 4.20 Lymph # (Auto) 1.00 [place] # (Auto) 0.60 Eos # (Auto) 0.02 Baso # (Auto) 0.01 APTT 28 D-Dimer Quant (PE/DVT) 0.52 H Sodium 132 L Potassium 4.4 Chloride 99 Carbon Dioxide 24 BUN 18 Creatinine 0.9 Estimated Creat Clear 117.97 Estimated GFR 106 Glucose 285 H Calcium 8.8 Magnesium Troponin I NT-Pro-B Natriuret Pep 1470 TSH SARS-CoV-2 (PCR) Influenza Type A (PCR) Influenza Type B (PCR) RSV (PCR) POC Troponin I 11/02/22 11/02/22 11/02/22 09:00 09:00 09:00 WBC RBC Hgb Hct MCV MCH MCHC RDW Coeff of Kay Plt Count Neut % (Auto) Lymph % (Auto) [place] % (Auto) Eos % (Auto) Baso % (Auto) Neut # (Auto) Lymph # (Auto) [place] # (Auto) Eos # (Auto) Baso # (Auto) APTT D-Dimer Quant (PE/DVT) Sodium Potassium Chloride Carbon Dioxide BUN Creatinine Estimated Creat Clear Estimated GFR Glucose Calcium Magnesium 1.6 Troponin I NT-Pro-B Natriuret Pep TSH 3.650 SARS-CoV-2 (PCR) Influenza Type A (PCR) Influenza Type B (PCR) RSV (PCR) POC Troponin I 0.02 11/02/22 11/02/22 11/02/22 09:15 11:00 18:18 WBC RBC Hgb Hct MCV MCH MCHC RDW Coeff of Kay Plt Count Neut % (Auto) Lymph % (Auto) [place] % (Auto) Eos % (Auto) Baso % (Auto) Neut # (Auto) Lymph # (Auto) [place] # (Auto) Eos # (Auto) Baso # (Auto) APTT D-Dimer Quant (PE/DVT) Sodium Potassium Chloride Carbon Dioxide BUN Creatinine Estimated Creat Clear Estimated GFR Glucose Calcium Magnesium Troponin I 0.02 NT-Pro-B Natriuret Pep TSH SARS-CoV-2 (PCR) Negative SARS-CoV-2 Influenza Type A (PCR) Negative PCR FLU A Influenza Type B (PCR) Negative PCR FLU B RSV (PCR) Negative PCR RSV POC Troponin I 0.00 L
[2022-11-02] MEDS: ALBUTEROL INHALER 2 PUFF IH (22:03)
[2022-11-02] MEDS: FUROSEMIDE 10 MG/ML inj 20 MG IVP (22:44)
[2022-11-02] MEDS: METOPROLOL TARTRATE 25 MG TABLET PO (23:32)
[2022-11-03] VITALS (14 sets, daily range): BP systolic 90–136; BP diastolic 65–95; PULSE 85–116; RESP 20–26; TEMP 35.7–36.5; O2SAT 92–99
--- NOTE | 2022-11-03 05:06 | PC.NURSE ---
[id number] Pt had hypotensive episode approx [id number], see Dr Silver's note. Since interventions pt BP stable, mild lightheaded/dizziness with ambulation but denies at rest. After I.V. bolus Pt LS with wheezes, one time lasix administered approx 2245, urinated 1250 out. BLE, 3+ pitting edema, encouraged pt to elevate legs. HR fluctuating between mid 70's and mid 90's, increases to low 100's with ambulation to BR, remains in A-fib. intermittent cough noted, pt denies labored breathing, chest pain, headache, N/V, he does state some SOB at rest, increased SOB with activity, maintains sats >90% on RA. Weight this A.M. showed 4.5 lbs weight Increase since admission on 11/02.
[2022-11-03] MEDS: METOPROLOL TARTRATE 25 MG TABLET PO ×3 (05:36→10:50)
[2022-11-03] MEDS: OMEPRAZOLE 20 MG CAPSULE DR 40 MG PO (06:36)
[2022-11-03 06:41] LABS: HCO3 VBG 29 mmol/L (21-28); PCO2 VBG 57 mmHG (40-50); PO2 VBG 25.5 mmHG (25-47); pH VBG 7.319 (7.32-7.43)
[2022-11-03 06:45] LABS: Basophils Absolute Auto 0.01 K/uL (0.00-0.30); Basophils Percent Auto 0.2 % (0.0-3.0); Eosinophils Absolute Auto 0.04 K/uL (0.00-0.50); Eosinophils Percent Auto 0.7 % (0.0-7.0); Hematocrit 42.5 % (37.0-53.0); Hemoglobin* 13.7 gm/dL (13.5-17.5); Immature Granulocytes Abs Auto 0.01 K/uL (0.00-0.30); Immature Granulocytes Pct Auto 0.2 %; Lymphocytes Absolute Auto 1.26 K/uL (0.90-2.90); Lymphocytes Percent Auto 23.2 % (20-44); Mean Corpuscular HGB Conc 32 gm/dL (32-36); Mean Corpuscular Hemoglobin 34 pg (26-34); Mean Corpuscular Volume 105 fL (80-100); Monocytes Percent Auto 11.8 % (0.0-11.0); Neutrophils Absolute Auto 3.47 K/uL (1.7-7.0); Neutrophils Percent Auto 63.9 % (42.0-72.0); Platelet Count* 198 K/uL (140-440); RDW Coefficient of Variation % 11.9 % (11.5-15.5); Red Blood Count 4.06 m/uL (4.30-5.90); White Blood Count* 5.43 K/uL (4.50-11.00)
[2022-11-03 07:15] LABS: Albumin* 3.8 g/dL (3.3-5.0); Chloride* 99 mmol/L (96-114); Potassium* 4.8 mmol/L (3.6-5.1); Sodium* 131 mmol/L (135-149)
[2022-11-03 07:17] LABS: Slide Review Reflex No
[2022-11-03 07:18] LABS: Alanine Aminotransferase* 43 U/L (4-50); Alkaline Phosphatase* 55 U/L (40-150); Aspartate Amino Transferase* 27 U/L (12-35); Bilirubin Total* 0.6 mg/dL (0.1-1.5); Blood Urea Nitrogen* 19 mg/dL (5-24); Calcium* 8.4 mg/dL (8.4-10.6); Carbon Dioxide* 28 mmol/L (20-32); Creatinine* 0.9 mg/dL (0.5-1.5); Est. Creatinine Clearance* 117.97; Estimated Glomerular Filt Rate 106 ml/min; Glucose* 166 mg/dL (60-115); Total Protein* 6.3 g/dL (6.0-8.3)
[2022-11-03 07:30] LABS: Troponin I* 0.01 ng/mL (0.01-0.04)
[2022-11-03] MEDS: DIGOXIN 250 MCG/ML inj 500 MCG IV (07:43)
[2022-11-03] MEDS: FOLIC ACID 1 MG TABLET PO (08:37)
[2022-11-03] MEDS: APIXABAN 5 MG TABLET PO (08:37)
--- NOTE | 2022-11-03 10:06 | P.IMPN_ITS ---
Progress Note: A&P Assessment and plan (1) Atrial fibrillation with RVR: Problem details: - patient had symptomatic hypotension with diltiazem gtt + TTE findings below; transitioned to digoxin and metoprolol (11/03) with improved rate control, still in afib Status: Acute (2) CHF (congestive heart failure): Problem details: TTE 11/02: Final Impressions: 1. Normal LV size, mildly increased wall thickness, EF of 10 - 20%. 2. Mild RV enlargement, severely reduced systolic function. 3. Mild LA enlargement. 4. The mitral valve is normal, mild regurgitation. 5. RA pressure 15+ mmHg (dilated IVC without respiratory variation). 6. Echo contrast was administrered to enhance visualization of all left ventricular segments. Status: Acute (3) Daily consumption of alcohol: Problem details: - with noted sequela of elevated MCV and elevated LFTs - no history of withdrawal (states last drink 10/28) - CIWAs ordered Status: Acute (4) Bronchitis: Problem details: - RLL on 11/02 imaging - likely viral, normal procalcitonin - will not initiate antibiotics on admission, monitor closely Status: Acute (5) Type 2 diabetes mellitus without complications: Problem details: - last A1C 04/18 (10/2022) - accuchecks and SSI, continue home Metformin Status: Chronic (6) Tobacco abuse: Problem details: - 1 ppd, amenable to patch during stay Status: Acute (7) Hyperlipidemia: Problem details: - continue home statin dose Status: Acute Plan - given persistent a fib with RVR, new HF with EF of 10% (previous EF 50%), reviewed with Cardiology, who recommends transfer for [facility]/Cardioversion - closest hospital with bed availability is [facility]; reviewed with Dr. Spivey at [facility] who accepts the patient in transfer, he left by ALS ambulance 11/03 - updated at bedside, questions answered Subjective Date Seen: 11/03/22 Interval history: Patient had poor rate control yesterday afternoon; diltiazem gtt initiated, then had an episode of symptomatic hypotension, so gtt was discontinued. This morning, Digoxin and scheduled Metoprolol were initiated and patient has tolerated that well. He continues to feel swollen, continues to have intermittent dyspnea, no chest pain. TTE obtained 11/02: Final Impressions: 1. Normal LV size, mildly increased wall thickness, EF of 10 - 20%. 2. Mild RV enlargement, severely reduced systolic function. 3. Mild LA enlargement. 4. The mitral valve is normal, mild regurgitation. 5. RA pressure 15+ mmHg (dilated IVC without respiratory variation). 6. Echo contrast was administrered to enhance visualization of all left ventricular segments. Exam Narrative: Exam Narrative: GEN: Alert and sitting up in bed, wearing oxygen with 3-4 word dyspnea HEENT: EOMIs bilaterally, no scleral icterus CV: irregular rhythm with rate in the 100s, heart sounds distant R: Mild wheezing bilateral apices, decreased air movement throughout Ext: 3+ edema BLE, also has 1+ edema BUEs Neuro: No focal deficits Psych: Appropriate Const: Vital Signs, click to edit/add: Vital Signs - 24 hr 11/02/22 11:10 11/02/22 10:15 11/02/22 10:30 Temperature Pulse Rate 191 H 124 H Pulse Rate [Apical ] 134 H Pulse Rate [Left B rachial] Pulse Rate [Right Radial] Respiratory Rate 20 Blood Pressure Blood Pressure [Le ft Arm] Blood Pressure [Le ft Upper Arm] 110/76 Pulse Oximetry 95 95 92 Oxygen Delivery Me thod Room Air Oxygen Flow Rate 11/02/22 10:32 11/02/22 10:36 11/02/22 10:37 Temperature Pulse Rate 103 H 114 H 111 H Pulse Rate [Apical ] Pulse Rate [Left B rachial] Pulse Rate [Right Radial] Respiratory Rate Blood Pressure 94/70 84/23 L 85/69 L Blood Pressure [Le ft Arm] Blood Pressure [Le ft Upper Arm] Pulse Oximetry 93 93 93 Oxygen Delivery Me thod Oxygen Flow Rate 11/02/22 10:45 11/02/22 11:00 11/02/22 11:06 Temperature Pulse Rate 102 H 134 H 108 H Pulse Rate [Apical ] Pulse Rate [Left B rachial] Pulse Rate [Right Radial] Respiratory Rate Blood Pressure 70/59 L Blood Pressure [Le ft Arm] Blood Pressure [Le ft Upper Arm] Pulse Oximetry 94 95 94 Oxygen Delivery Me thod Oxygen Flow Rate 11/02/22 11:13 11/02/22 11:15 11/02/22 11:58 Temperature Pulse Rate 107 H 108 H Pulse Rate [Apical ] Pulse Rate [Left B rachial] 129 H Pulse Rate [Right Radial] Respiratory Rate 14 Blood Pressure 100/76 Blood Pressure [Le ft Arm] 101/83 Blood Pressure [Le ft Upper Arm] Pulse Oximetry 95 90 94 Oxygen Delivery Me thod Nasal Cannula Oxygen Flow Rate 1 11/02/22 12:19 11/02/22 12:52 11/02/22 13:01 Temperature 98.3 F Pulse Rate 114 H Pulse Rate [Apical ] Pulse Rate [Left B rachial] 129 H Pulse Rate [Right Radial] Respiratory Rate 14 Blood Pressure Blood Pressure [Le ft Arm] 101/83 Blood Pressure [Le ft Upper Arm] Pulse Oximetry 94 Oxygen Delivery Me thod Nasal Cannula Nasal Cannula Oxygen Flow Rate 1 1 11/02/22 15:34 11/02/22 15:37 11/02/22 15:40 Temperature 97.0 F L Pulse Rate 91 Pulse Rate [Apical ] Pulse Rate [Left B rachial] Pulse Rate [Right Radial] Respiratory Rate 14 18 Blood Pressure Blood Pressure [Le ft Arm] 112/98 H Blood Pressure [Le ft Upper Arm] Pulse Oximetry 94 95 Oxygen Delivery Me thod Nasal Cannula Nasal Cannula Oxygen Flow Rate 1 1 11/02/22 15:41 11/02/22 19:00 11/02/22 19:30 Temperature 97.2 F L Pulse Rate Pulse Rate [Apical ] Pulse Rate [Left B rachial] 113 H Pulse Rate [Right Radial] 113 H 99 101 H Respiratory Rate 18 18 18 Blood Pressure Blood Pressure [Le ft Arm] 117/96 H 98/74 Blood Pressure [Le ft Upper Arm] Pulse Oximetry 95 95 Oxygen Delivery Me thod Nasal Cannula Nasal Cannula Oxygen Flow Rate 1 1 11/02/22 20:00 11/02/22 20:22 11/02/22 20:28 Temperature Pulse Rate Pulse Rate [Apical ] Pulse Rate [Left B rachial] Pulse Rate [Right Radial] 94 94 112 H Respiratory Rate 18 18 16 Blood Pressure Blood Pressure [Le ft Arm] 103/69 95/84 94/83 Blood Pressure [Le ft Upper Arm] Pulse Oximetry 96 94 93 Oxygen Delivery Me thod Nasal Cannula Nasal Cannula Nasal Cannula Oxygen Flow Rate 1 1 1 11/02/22 20:31 11/02/22 20:40 11/02/22 20:35 Temperature Pulse Rate Pulse Rate [Apical ] Pulse Rate [Left B rachial] Pulse Rate [Right Radial] 74 74 Respiratory Rate 16 16 Blood Pressure Blood Pressure [Le ft Arm] 90/67 84/70 L 96/63 Blood Pressure [Le ft Upper Arm] Pulse Oximetry 96 94 Oxygen Delivery Me thod Nasal Cannula Nasal Cannula Oxygen Flow Rate 1 1 11/02/22 21:50 11/02/22 21:00 11/02/22 21:11 Temperature Pulse Rate Pulse Rate [Apical ] Pulse Rate [Left B rachial] Pulse Rate [Right Radial] Respiratory Rate 16 Blood Pressure Blood Pressure [Le ft Arm] 97/68 56/21 L 102/68 Blood Pressure [Le ft Upper Arm] Pulse Oximetry Oxygen Delivery Me thod Nasal Cannula Oxygen Flow Rate 1 11/02/22 21:19 11/02/22 21:24 11/02/22 21:20 Temperature Pulse Rate Pulse Rate [Apical ] Pulse Rate [Left B rachial] Pulse Rate [Right Radial] Respiratory Rate Blood Pressure Blood Pressure [Le ft Arm] 90/76 97/78 112/63 Blood Pressure [Le ft Upper Arm] Pulse Oximetry Oxygen Delivery Me thod Oxygen Flow Rate 11/02/22 21:30 11/02/22 22:53 11/02/22 22:53 Temperature Pulse Rate Pulse Rate [Apical ] Pulse Rate [Left B rachial] Pulse Rate [Right Radial] 90 Respiratory Rate 18 16 Blood Pressure Blood Pressure [Le ft Arm] 106/75 112/74 Blood Pressure [Le ft Upper Arm] Pulse Oximetry 93 Oxygen Delivery Me thod Room Air Oxygen Flow Rate 11/02/22 22:53 11/02/22 23:00 11/02/22 23:00 Temperature 97.6 F Pulse Rate 100 Pulse Rate [Apical ] Pulse Rate [Left B rachial] Pulse Rate [Right Radial] 97 Respiratory Rate 16 Blood Pressure Blood Pressure [Le ft Arm] 109/79 Blood Pressure [Le ft Upper Arm] Pulse Oximetry 93 95 Oxygen Delivery Me thod Room Air Room Air Oxygen Flow Rate 11/03/22 00:30 11/03/22 02:51 11/03/22 04:19 Temperature 96.2 F L 97.7 F Pulse Rate Pulse Rate [Apical ] Pulse Rate [Left B rachial] Pulse Rate [Right Radial] 104 H 86 85 Respiratory Rate 20 20 20 Blood Pressure Blood Pressure [Le ft Arm] 112/88 90/78 117/65 Blood Pressure [Le ft Upper Arm] Pulse Oximetry 92 95 95 Oxygen Delivery Me thod Room Air Nasal Cannula Nasal Cannula Oxygen Flow Rate 1 1 11/03/22 05:39 11/03/22 07:30 11/03/22 07:43 Temperature 97.1 F L Pulse Rate 116 H Pulse Rate [Apical ] Pulse Rate [Left B rachial] Pulse Rate [Right Radial] 94 116 H Respiratory Rate 20 22 Blood Pressure Blood Pressure [Le ft Arm] 118/95 H 136/88 Blood Pressure [Le ft Upper Arm] Pulse Oximetry 94 94 Oxygen Delivery Me thod Nasal Cannula Room Air Oxygen Flow Rate 1 11/03/22 08:28 11/03/22 07:45 11/03/22 07:45 Temperature Pulse Rate 107 H Pulse Rate [Apical ] 116 H Pulse Rate [Left B rachial] Pulse Rate [Right Radial] 100 Respiratory Rate 22 Blood Pressure Blood Pressure [Le ft Arm] 110/81 Blood Pressure [Le ft Upper Arm] Pulse Oximetry Oxygen Delivery Me thod Oxygen Flow Rate 11/03/22 07:45 11/03/22 10:00 Temperature Pulse Rate Pulse Rate [Apical ] 109 H Pulse Rate [Left B rachial] Pulse Rate [Right Radial] Respiratory Rate 22 Blood Pressure Blood Pressure [Le ft Arm] 120/90 H Blood Pressure [Le ft Upper Arm] Pulse Oximetry 97 96 Oxygen Delivery Me thod Nasal Cannula Nasal Cannula Oxygen Flow Rate 2 Labs Labs: Laboratory Results - last 24 hr 11/02/22 11/02/22 11/02/22 09:00 09:15 11:00 WBC RBC Hgb Hct MCV MCH MCHC RDW Coeff of Kay Plt Count Neut % (Auto) Lymph % (Auto) [place] % (Auto) Eos % (Auto) Baso % (Auto) Neut # (Auto) Lymph # (Auto) [place] # (Auto) Eos # (Auto) Baso # (Auto) VBG pH VBG pCO2 VBG pO2 VBG HCO3 Sodium Potassium Chloride Carbon Dioxide BUN Creatinine Estimated Creat Clear Estimated GFR Glucose Calcium Total Bilirubin AST ALT Alkaline Phosphatase Troponin I Total Protein Albumin Procalcitonin TSH 3.650 SARS-CoV-2 (PCR) Negative SARS-CoV-2 Influenza Type A (PCR) Negative PCR FLU A Influenza Type B (PCR) Negative PCR FLU B RSV (PCR) Negative PCR RSV POC Troponin I 0.00 L 11/02/22 11/03/22 11/03/22 18:18 06:33 06:33 WBC 5.43 RBC 4.06 L Hgb 13.7 Hct 42.5 MCV 105 H MCH 34 MCHC 32 RDW Coeff of Kay 11.9 Plt Count 198 Neut % (Auto) 63.9 Lymph % (Auto) 23.2 [place] % (Auto) 11.8 H Eos % (Auto) 0.7 Baso % (Auto) 0.2 Neut # (Auto) 3.47 Lymph # (Auto) 1.26 [place] # (Auto) 0.60 Eos # (Auto) 0.04 Baso # (Auto) 0.01 VBG pH VBG pCO2 VBG pO2 VBG HCO3 Sodium 131 L Potassium 4.8 Chloride 99 Carbon Dioxide 28 BUN 19 Creatinine 0.9 Estimated Creat Clear 117.97 Estimated GFR 106 Glucose 166 H Calcium 8.4 Total Bilirubin 0.6 AST 27 ALT 43 Alkaline Phosphatase 55 Troponin I 0.02 0.01 Total Protein 6.3 Albumin 3.8 Procalcitonin 0.10 TSH SARS-CoV-2 (PCR) Influenza Type A (PCR) Influenza Type B (PCR) RSV (PCR) POC Troponin I 11/03/22 06:33 WBC RBC Hgb Hct MCV MCH MCHC RDW Coeff of Kay Plt Count Neut % (Auto) Lymph % (Auto) [place] % (Auto) Eos % (Auto) Baso % (Auto) Neut # (Auto) Lymph # (Auto) [place] # (Auto) Eos # (Auto) Baso # (Auto) VBG pH 7.319 L VBG pCO2 57 H VBG pO2 25.5 VBG HCO3 29 H Sodium Potassium Chloride Carbon Dioxide BUN Creatinine Estimated Creat Clear Estimated GFR Glucose Calcium Total Bilirubin AST ALT Alkaline Phosphatase Troponin I Total Protein Albumin Procalcitonin TSH SARS-CoV-2 (PCR) Influenza Type A (PCR) Influenza Type B (PCR) RSV (PCR) POC Troponin I
[2022-11-03] MEDS: FUROSEMIDE 10 MG/ML inj 20 MG IVP (10:50)
[2022-11-03] MEDS: NICOTINE 14 mg PATCH 1 PATCH TRANSDERMA (10:51)
[2022-11-03] MEDS: THIAMINE 100 MG TABLET PO (10:51)
[2022-11-03] MEDS: SODIUM CHLORIDE 0.9 % (FLUSH) 10 ML SYRINGE 5 ML IVF (10:54)
[2022-11-03] MEDS: ALBUTEROL SULFATE 2.5 MG/3 ML VIAL.NEB NEB (12:53)
[2022-11-03] MEDS: DIGOXIN 250 MCG/ML inj IV (12:54)
--- NOTE | 2022-11-03 13:55 | PC.NURSE ---
shift note: pt up to bathroom with sba. Pt face and ears purple. ears cool to touch. pt placed on oxymask 4L O2 with pt's skin tone turning to normal within 15 mins. Pt has increased sob with minimal activity. RR 22-26/min. LS exp/insp wheezing. pt recieved alb neb prior to transport. Pt denies c.p or pressure. Pt HR 98-120 and irreg. bilat l/e 3+ edema, cool to touch and purplish in color. U/E skin tight and tough in texture. blood sugars 161,240. Pt had 2 large loose BM's. IV x2 patent to rt arm. Nurse to nurse given via phone to Anne-Marie BULLARD @ [facility] prior to transport. Grace paperwork sent with pt on transport.
== END 2022-11-03 12:40 | disposition short-term general hospital (02) | DRG 309 ==
LOC: ED 11:10 → MEDSURG 11:44
PROVIDERS: Admitting Provider Family Medicine; Emergency Provider Family Medicine; PCP Family Medicine; Visit Provider Family Medicine
DX: I48.91 Unspecified atrial fibrillation (principal); I50.20 Unspecified systolic (congestive) heart failure; I11.0 Hypertensive heart disease with heart failure; I95.9 Hypotension, unspecified; E11.9 Type 2 diabetes mellitus without complications; J44.9 Chronic obstructive pulmonary disease, unspecified; E78.5 Hyperlipidemia, unspecified; F17.210 Nicotine dependence, cigarettes, uncomplicated; F10.10 Alcohol abuse, uncomplicated
CPT/HCPCS: 36415; 71046; 71260; 80048; 80053; 82803; 82962; 83735; 83880; 84145; 84443; 84484; 85025; 85379; 85730; 87502; 87634; 87635; 93005; 93306; 94640; 99285; 99291; A9270; J1160; J1940; J3475; J3490; J7030; Q9957; Q9967; S4990

== ENCOUNTER 2022-11-03 13:04 | Outpatient (CLI) | payer OTHER, SELFPAY | END 2022-11-03 13:05 | disposition home or self-care (01) | LOC: AMB 22:22 | PROVIDERS: PCP Family Medicine; Visit Provider Family Medicine | DX: R06.09 Other forms of dyspnea (principal) | CPT/HCPCS: A0425; A0426; A0427 ==

== ENCOUNTER 2022-11-29 20:22 | Outpatient (CLI) | payer OTHER, SELFPAY ==
--- NOTE | 2022-12-08 08:31 | W.PM.SLEEP ---
Sleep Study Details Details Interpreting Provider: Nahun Date of Sleep Study: 11/29/22 Sleep Study Details: STUDY TYPE:? Hospital-based with CPAP titration ? BMI:? 35.1 INDICATION:? Concerns about sleep apnea ? SLEEP SUMMARY:? 3 in 43.5 minutes monitored, REM latency 72.5, arousal index 8.9 RESPIRATORY SUMMARY:? Mean oxygen awake 95, asleep 93, low 83 7.4 minutes oxygen between 80 and 88% AHI 16.6, RDI 19.3, REM AHI 61.2. Note that the entire baseline portion of the study was done in the supine position. CPAP titration was performed. The patient was titrated to a pressure of 8 which included 10.5 minutes of REM stage sleep but was mostly in the nonsupine position. This would be viewed as a moderately successful titration. PERIODIC LIMB MOVEMENTS OF SLEEP:? Pretreatment index 14.6, index with arousal 0.4. Post treatment index was 0 CARDIAC:? Awake 69, asleep 68 beats per minute IMPRESSION:? Moderate obstructive sleep apnea with significant REM dependency. CPAP titration was moderately successful at a pressure of 8 but did not include much sleep in the nonsupine position. RECOMMENDATION: Treatment options would include CPAP AutoSet pressure 7-15, dental appliance and or weight loss and airway expansion surgery. Would favor CPAP trial
== END 2022-11-29 20:23 | disposition home or self-care (01) ==
LOC: SLEEP 20:22
PROVIDERS: PCP Family Medicine; Visit Provider Family Medicine
DX: G47.33 Obstructive sleep apnea (adult) (pediatric) (principal)
CPT/HCPCS: 95811

== ENCOUNTER 2023-03-28 21:31 | Emergency (ER) | payer OTHER, SELFPAY ==
[2023-03-28 21:38] VITALS: BP 150/72; PULSE 87; RESP 16; TEMP 36.2; O2SAT 98; BMI 27.0
--- NOTE | 2023-03-29 14:43 | ED_ITS ---
HPI - General Adult General Chief complaint: Ear/Nose/Throat Problem Stated complaint: bleeding L ear, on blood thinners Time Seen by Provider: 03/28/23 22:02 History of Present Illness HPI narrative: LEFT inner ear spontaneously started bleeding around 2030 this evening. Pt on Eliquis. Takes it daily at night, has not taken it yet tonight. Blood with clots on tissue in ear in triage. Had CPAP machine on when it started bleeding. No known injury 47-year-old man presenting to the emergency department with concern of bleeding from his left ear. He does take Eliquis. Is not feeling lightheaded. This is painless bleeding. They describe this, he is accompanied by daughter, has a tremendous amount of bleeding. No known trauma though he was wearing his CPAP. Does not recall that the straps irritated anything. He has not had congestive symptoms recently. With later questioning and evidenced on physical exam, does use Q-tips regularly. describes having taken a look and it bleeding from everywhere. Seems to indicate concern of the tympanic membrane. and daughter insisted he come in. Related Data Home Medications Medication Instructions Recorded Confirmed sildenafil 100 mg tablet 50 - 100 mg PO Q24H PRN 10/20/22 03/29/23 atorvastatin 20 mg tablet 20 mg PO HS 11/02/22 03/29/23 amiodarone 200 mg tablet 400 mg PO QDAY 11/17/22 03/29/23 apixaban 5 mg tablet 5 mg PO BID 11/17/22 03/29/23 empagliflozin 10 mg tablet 10 mg PO QAM 03/28/23 03/29/23 (Jardiance) Previous Rx's Medication Instructions Recorded albuterol sulfate 90 mcg/actuation 2 puff inhalation Q4-6H PRN 10/21/22 aerosol inhaler (Ventolin HFA) shortness of breath or wheezing #8.5 grams spironolactone 25 mg tablet 25 mg PO QDAY #90 tabs 12/07/22 furosemide 40 mg tablet 40 mg PO BID #180 tabs 12/09/22 losartan 50 mg tablet 50 mg PO QDAY #90 tabs 12/09/22 tadalafil 20 mg tablet (Cialis) 20 mg PO QDAY PRN sexual activity 12/21/22 #10 tabs metoprolol succinate 50 mg 50 mg PO BID #540 tabs 03/01/23 tablet,extended release 24 hr Allergies Allergy/AdvReac Type Severity Reaction Status Date / Time No Known Drug Allergies Allergy Verified 03/29/23 13:10 Review of Systems Status of ROS: Reports: 6 or more systems reviewed and unremarkable except as noted in History and below [facility] Medical History Corns and callosities ?L84 - Corns and callosities (ICD-10) Daily consumption of alcohol ?Z78.9 - Other specified health status (ICD-10) Atrial fibrillation with RVR ?I48.91 - Unspecified atrial fibrillation (ICD-10) COPD (chronic obstructive pulmonary disease) ?J44.9 - Chronic obstructive pulmonary disease, unspecified (ICD-10) Tobacco abuse (11/22/14) ?Z72.0 - Tobacco use (ICD-10) Hypertension (09/13/14) ?I10 - Essential (primary) hypertension (ICD-10) Hyperlipidemia ?E78.5 - Hyperlipidemia, unspecified (ICD-10) Erectile dysfunction (09/25/14) ?N52.9 - Male erectile dysfunction, unspecified (ICD-10) Chronic pain of left ankle ?M25.572 - Pain in left ankle and joints of left foot (ICD-10) ?G89.29 - Other chronic pain (ICD-10) Type 2 diabetes mellitus without complications ?E11.9 - Type 2 diabetes mellitus without complications (ICD-10) Surgical History History of cardiac radiofrequency ablation ?Z98.890 - Other specified postprocedural states (ICD-10) History of vasectomy (2007) ?Z98.52 - Vasectomy status (ICD-10) History of foot surgery (09/2015) ?Z98.890 - Other specified postprocedural states (ICD-10) Family History Mother Breast cancer Heart disease CHF (congestive heart failure) Maternal Grandfather Heart disease Brother Cystic fibrosis Diabetes Social History Narrative: , 2 kids, 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 1 ppd smoker, daily ETOH (5-6 drinks) Highest level of school completed/degree received: high school graduate Smoking Status: Never smoker Do you use any of these nicotine containing products: None Second hand tobacco smoke exposure: Yes How often do you have a drink containing alcohol: 4 or more times a week Alcohol type: beer How many standard drinks containing alcohol do you have on a typical day: 3 or 4 How often do you have six or more drinks on one occasion: Never AUDIT-C Alcohol total score: 5 Non-prescribed substance use: denies use Caffeine: Yes (rarely) Little interest or pleasure in doing things: not at all Feeling down, depressed, or hopeless: several days service: No Exam 2 Narrative: Exam Narrative: Pleasant. NAD. Skin is warm and dry. Neck is supple. Head looks atraumatic. He sounds to have a lightly congested timbre. Skin is generally phil complected. The right ear canal is pristine with normal TM with some redness centrally. The left TM is without inflammation appears to be intact. There is settling blood also within otherwise pristine ear canal. The blood appears to be coagulating. Const: Vital Signs, click to edit/add: Vital Signs - 24 hr 03/28/23 21:38 Temperature 97.1 F L Pulse Rate [Pulse Oximeter] 87 Respiratory Rate 16 Blood Pressure [Ri ght Upper Arm] 150/72 H Pulse Oximetry 98 Oxygen Delivery Me thod Room Air Documenting provider has reviewed patient's vital signs: yes Course Vital Signs Vital signs: Initial Vital Signs Temperature 97.1 F L 03/28/23 21:38 Temperature Source Temporal Artery Scan 03/28/23 21:38 Pulse Rate 87 03/28/23 21:38 Pulse Rhythm Regular 03/28/23 21:38 Pulse Strength 3+ Normal 03/28/23 21:38 Respiratory Rate 16 03/28/23 21:38 Blood Pressure 150/72 H 03/28/23 21:38 Blood Pressure Mean 98 03/28/23 21:38 Blood Pressure Position Sitting 03/28/23 21:38 Pulse Oximetry 98 03/28/23 21:38 Oxygen Delivery Method Room Air 03/28/23 21:38 Vital Signs Temperature 97.1 F L 03/28/23 21:38 Pulse Rate 87 03/28/23 21:38 Respiratory Rate 16 03/28/23 21:38 Blood Pressure 150/72 H 03/28/23 21:38 Pulse Oximetry 98 03/28/23 21:38 Oxygen Delivery Method Room Air 03/28/23 21:38 Temperature 97.1 F L 03/28/23 21:38 Pulse Rate 87 03/28/23 21:38 Respiratory Rate 16 03/28/23 21:38 Blood Pressure 150/72 H 03/28/23 21:38 Pulse Oximetry 98 03/28/23 21:38 Oxygen Delivery Method Room Air 03/28/23 21:38 Medical Decision Making MDM Narrative Medical decision making narrative: I do not think this was a baropressure event as I think was the potential concern. Tympanic membranes appear to be intact. The ear canals of course contain delicate tissue and likely began bleeding in the setting of anticoagulation. Looks to be controlled at this point. See patient discharge plan. Medical Records Medical records reviewed: Yes I reviewed the patient's medical records Discharge Plan Discharge Clinical Impression: Bleeding from left ear, Anticoagulated Patient Disposition: Home, Self-Care Condition: Improved Additional Instructions: I would recommend strongly given that you are anticoagulated especially, avoid putting things into your ear canals like Q-tips. Rather delicate tissue that can be prone to bleeding. Return if won't stop bleeding again. Can use these chux on your pillow tonight. Prescriptions: No Action amiodarone 200 mg tablet 400 mg PO QDAY Patient Comments: will change to one 200mg tab on 11/19/22 apixaban 5 mg tablet 5 mg PO BID sildenafil 100 mg tablet 50 - 100 mg PO Q24H PRN tadalafil [Cialis] 20 mg tablet 20 mg PO QDAY PRN (Reason: sexual activity) Qty: 10 5RF Rx Instructions: administer approximately 30min before sexual activity; do not use more than 1 dose per 24hrs atorvastatin 20 mg tablet 20 mg PO HS Jardiance 10 mg tablet 10 mg PO QAM albuterol sulfate [Ventolin HFA] 90 mcg/actuation HFA aerosol inhaler 2 puff inhalation Q4-6H PRN (Reason: shortness of breath or wheezing) Qty: 8.5 2RF spironolactone 25 mg tablet 25 mg PO QDAY Qty: 90 1RF furosemide 40 mg tablet 40 mg PO BID Qty: 180 1RF losartan 50 mg tablet 50 mg PO QDAY Qty: 90 1RF metoprolol succinate 50 mg tablet extended release 24 hr 50 mg PO BID Qty: 540 1RF Follow Up/Referrals: Vincenzo Bautista MD [Primary Care Provider] - Stand Alone Forms: [employer] Info Instructions
== END 2023-03-28 22:22 | disposition home or self-care (01) ==
PROVIDERS: Emergency Provider Family Medicine; PCP Family Medicine
DX: H92.22 Otorrhagia, left ear (principal)
CPT/HCPCS: 99282; 99283

== ENCOUNTER 2023-03-29 03:50 | Emergency (ER) | payer OTHER, SELFPAY ==
[2023-03-29 04:00] VITALS: BP 131/79; PULSE 88; RESP 18; TEMP 36.7; O2SAT 99; BMI 26.3
--- NOTE | 2023-03-29 04:17 | ED_ITS ---
HPI - General Adult General Time Seen by Provider: 04:17 Date Seen: 03/29/23 Chief complaint: Ear/Nose/Throat Problem Stated complaint: left ear still bleeding Time Seen by Provider: 03/29/23 04:00 Source: patient Mode of arrival: ambulatory Limitations: no limitations History of Present Illness HPI narrative: Patient is a 47-year-old male who was on Eliquis he states for his heart failure, no AFib presenting to the ED left ear bleeding. Patient states he was here earlier in the day and was evaluated. He was discharged home in total sleep on it shortness in follow-up of patient. He states she woke up during his sleep and noticed his left ear was still bleeding. He denies this ever happening before. He has been anticoagulated for the past 6 months. He does states he cleans his ears with Q-tips but states he is not go very deep. Last time he did it was today. Denies lightheadedness or dizziness. Is having no associated pain or hearing loss Related Data Home Medications Medication Instructions Recorded Confirmed sildenafil 100 mg tablet 50 - 100 mg PO Q24H PRN 10/20/22 03/28/23 atorvastatin 20 mg tablet 20 mg PO HS 11/02/22 03/28/23 amiodarone 200 mg tablet 400 mg PO QDAY 11/17/22 03/28/23 apixaban 5 mg tablet 5 mg PO BID 11/17/22 03/28/23 empagliflozin 10 mg tablet 10 mg PO QAM 03/28/23 03/28/23 (Jardiance) Previous Rx's Medication Instructions Recorded albuterol sulfate 90 mcg/actuation 2 puff inhalation Q4-6H PRN 10/21/22 aerosol inhaler (Ventolin HFA) shortness of breath or wheezing #8.5 grams spironolactone 25 mg tablet 25 mg PO QDAY #90 tabs 12/07/22 furosemide 40 mg tablet 40 mg PO BID #180 tabs 12/09/22 losartan 50 mg tablet 50 mg PO QDAY #90 tabs 12/09/22 tadalafil 20 mg tablet (Cialis) 20 mg PO QDAY PRN sexual activity 12/21/22 #10 tabs metoprolol succinate 50 mg 50 mg PO BID #540 tabs 03/01/23 tablet,extended release 24 hr Allergies Allergy/AdvReac Type Severity Reaction Status Date / Time No Known Drug Allergies Allergy Verified 03/28/23 21:45 Review of Systems Narrative: Review of systems is otherwise negative unless stated in the HPI [facility] Medical History (Updated 03/29/23 @ 04:22 by Pawel Lawrence DO) Corns and callosities ?L84 - Corns and callosities (ICD-10) Daily consumption of alcohol ?Z78.9 - Other specified health status (ICD-10) Atrial fibrillation with RVR ?I48.91 - Unspecified atrial fibrillation (ICD-10) COPD (chronic obstructive pulmonary disease) ?J44.9 - Chronic obstructive pulmonary disease, unspecified (ICD-10) Tobacco abuse (11/22/14) ?Z72.0 - Tobacco use (ICD-10) Hypertension (09/13/14) ?I10 - Essential (primary) hypertension (ICD-10) Hyperlipidemia ?E78.5 - Hyperlipidemia, unspecified (ICD-10) Erectile dysfunction (09/25/14) ?N52.9 - Male erectile dysfunction, unspecified (ICD-10) Chronic pain of left ankle ?M25.572 - Pain in left ankle and joints of left foot (ICD-10) ?G89.29 - Other chronic pain (ICD-10) Type 2 diabetes mellitus without complications ?E11.9 - Type 2 diabetes mellitus without complications (ICD-10) Surgical History (Updated 12/05/22 @ 21:07 by Vincenzo Bautista MD) History of cardiac radiofrequency ablation ?Z98.890 - Other specified postprocedural states (ICD-10) History of vasectomy (2007) ?Z98.52 - Vasectomy status (ICD-10) History of foot surgery (09/2015) ?Z98.890 - Other specified postprocedural states (ICD-10) Family History (Updated 11/02/22 @ 12:03 by Kayla Manzanares MD) Mother Breast cancer Heart disease CHF (congestive heart failure) Maternal Grandfather Heart disease Brother Cystic fibrosis Diabetes Social History (Updated 11/20/22 @ 17:50 by Vincenzo Bautista MD) Narrative: , 2 kids, 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 1 ppd smoker, daily ETOH (5-6 drinks) Highest level of school completed/degree received: high school graduate Smoking Status: Never smoker Do you use any of these nicotine containing products: None Second hand tobacco smoke exposure: Yes How often do you have a drink containing alcohol: 4 or more times a week Alcohol type: beer How many standard drinks containing alcohol do you have on a typical day: 3 or 4 How often do you have six or more drinks on one occasion: Never AUDIT-C Alcohol total score: 5 Non-prescribed substance use: denies use Caffeine: Yes (rarely) Little interest or pleasure in doing things: not at all Feeling down, depressed, or hopeless: several days service: No Exam Narrative: Exam Narrative: Const: Well-nourished, Well-developed, in mild distress Eyes: PERRL, no conjunctival injection, and symmetrical lids ENMT: Atraumatic external nose and ears. Left ear does have blood around the external auditory canal. Using the otoscope I did remove a blood clot from the ear. Tympanic membranes look normal bilaterally. Left ear does appear to have a slowly oozing cut within the deeper portion of the external auditory canal. MSK:Extremities w/o deformity, Normal Active ROM Skin: Warm, Dry. No rashes or lesions. Neuro: Normal Muscle tone, No focal neurological deficits. Psych: Awake, Alert, & Oriented x3. Appropriate mood and affect. Const: Vital Signs, click to edit/add: Vital Signs - 24 hr 03/29/23 04:00 Temperature 98.1 F Pulse Rate [Left P ulse Oximeter] 88 Respiratory Rate 18 Blood Pressure [Ri ght Upper Arm] 131/79 Pulse Oximetry 99 Oxygen Delivery Me thod Room Air Course Vital Signs Vital signs: Initial Vital Signs Temperature 98.1 F 03/29/23 04:00 Temperature Source Temporal Artery Scan 03/29/23 04:00 Pulse Rate 88 03/29/23 04:00 Respiratory Rate 18 03/29/23 04:00 Blood Pressure 131/79 03/29/23 04:00 Blood Pressure Mean 96 03/29/23 04:00 Blood Pressure Position Sitting 03/29/23 04:00 Pulse Oximetry 99 03/29/23 04:00 Oxygen Delivery Method Room Air 03/29/23 04:00 Vital Signs Temperature 98.1 F 03/29/23 04:00 Pulse Rate 88 03/29/23 04:00 Respiratory Rate 18 03/29/23 04:00 Blood Pressure 131/79 03/29/23 04:00 Pulse Oximetry 99 03/29/23 04:00 Oxygen Delivery Method Room Air 03/29/23 04:00 Temperature 98.1 F 03/29/23 04:00 Pulse Rate 88 03/29/23 04:00 Respiratory Rate 18 03/29/23 04:00 Blood Pressure 131/79 03/29/23 04:00 Pulse Oximetry 99 03/29/23 04:00 Oxygen Delivery Method Room Air 03/29/23 04:00 Medical Decision Making MDM Narrative Medical decision making narrative: Patient is a 47-year-old male presenting for left ear bleeding. He is on Eliquis. Denies ever having this happen before. Was seen earlier today for same symptoms and was discharged home. The bleeding was still occurring and he was concerned. Is not having any systemic symptoms at this time. Patient noticed a moderate amount of blood on the chart which he brought with. On exam I did see an area of the external auditory canal there was bleeding but was too deep for cauterization in the emergency department. It is slowly oozing and thus I feel he is safe for discharge with outpatient follow-up with ENT. He will be discharged home. Discharge Plan Discharge Clinical Impression: Bleeding from left ear Condition: Stable Instructions: Earache (ED) Additional Instructions: Follow-up with an irrigation specialist. Return for new worsening symptoms Prescriptions: No Action amiodarone 200 mg tablet 400 mg PO QDAY Patient Comments: will change to one 200mg tab on 11/19/22 apixaban 5 mg tablet 5 mg PO BID sildenafil 100 mg tablet 50 - 100 mg PO Q24H PRN tadalafil [Cialis] 20 mg tablet 20 mg PO QDAY PRN (Reason: sexual activity) Qty: 10 5RF Rx Instructions: administer approximately 30min before sexual activity; do not use more than 1 dose per 24hrs atorvastatin 20 mg tablet 20 mg PO HS Jardiance 10 mg tablet 10 mg PO QAM albuterol sulfate [Ventolin HFA] 90 mcg/actuation HFA aerosol inhaler 2 puff inhalation Q4-6H PRN (Reason: shortness of breath or wheezing) Qty: 8.5 2RF spironolactone 25 mg tablet 25 mg PO QDAY Qty: 90 1RF furosemide 40 mg tablet 40 mg PO BID Qty: 180 1RF losartan 50 mg tablet 50 mg PO QDAY Qty: 90 1RF metoprolol succinate 50 mg tablet extended release 24 hr 50 mg PO BID Qty: 540 1RF Follow Up/Referrals: Vincenzo Bautista MD [Primary Care Provider] - Stand Alone Forms: [email or web address] Info Instructions
== END 2023-03-29 04:29 | disposition home or self-care (01) ==
PROVIDERS: Emergency Provider Student in an Organized Health Care Education/Training Program; PCP Family Medicine
DX: H92.22 Otorrhagia, left ear (principal)
CPT/HCPCS: 99282

== ENCOUNTER 2023-05-03 12:53 | Outpatient (CLI) | payer OTHER, SELFPAY ==
[2023-05-03 13:49] LABS: Alanine Aminotransferase* 40 U/L (4-50); Cholesterol* 157 mg/dL (90-199); HDL Cholesterol* 51 mg/dL (>=40); LDL Cholesterol Calculated 79 mg/dL (<100); Triglycerides* 134 mg/dL (40-149)
== END 2023-05-03 12:54 | disposition home or self-care (01) ==
PROVIDERS: PCP Family Medicine; Visit Provider Family Medicine
DX: E78.5 Hyperlipidemia, unspecified (principal); E11.9 Type 2 diabetes mellitus without complications
CPT/HCPCS: 80061; 84460

== ENCOUNTER 2023-07-06 09:42 | Emergency (ER) | payer OTHER, SELFPAY ==
[2023-07-06 09:48] VITALS: BP 184/82; PULSE 77; RESP 16; TEMP 36.9; O2SAT 98; BMI 27.0
--- NOTE | 2023-07-06 10:06 | CRLHL7_ITS ---
For Patients: As a result of the Century Cures Act, medical imaging exams and procedure reports are released immediately into your electronic medical record. You may view this report before your referring provider. If you have questions, please contact your health care provider. HISTORY: Diabetic patient with foot wound. Prior surgery. TECHNIQUE: Intravenous contrast enhanced CT of the right foot. 103 mL of Isovue-370 intravenous contrast was administered. COMPARISON: No prior. FINDINGS: There is a soft tissue wound involving the plantar forefoot with associated superficial subcutaneous collection. The collection measures approximately 3.3 x 2.1 x 0.9 cm in size and contains small locules of gas. No radiopaque foreign body within the plantar soft tissues. No gas tracking remote from that area. No adjacent acute bone destruction to suggest acute osteomyelitis. Postsurgical changes involving the 1st metatarsal bone. First metatarsal bone appears healed with mild deformity. There is lucency adjacent to the head of a screw at the medial 1st metatarsal head level on coronal image #44 series 6 likely indicating loosening. There is arthrosis of the 1st MTP joint space. The dorsal plate focally abuts the articular surface of the base of the 1st metatarsal bone. Degenerative changes of the ankle joint space with subchondral cystic change involving the talar dome likely indicating grade 4 cartilage loss. Plantar calcaneal spur. Sequelae of remote injury of the interosseous membrane between the distal tibia and fibula. IMPRESSION: 1. Plantar forefoot ulcer with associated 3.3 cm superficial subcutaneous collection that contains gas. 2. No adjacent bone destruction to suggest osteomyelitis. 3. Postsurgical changes involving the 1st metatarsal bone. Lucency adjacent to the head of a screw at the medial metatarsal head level suggesting loosening. The 1st metatarsal bone appears healed with mild deformity. Arthrosis of the 1st MTP joint space. Please note that all CT scans at this facility use dose modulation, iterative reconstruction, and/or weight-based dosing when appropriate to reduce radiation dose to as low as reasonably achievable. Dictated by Richie Neal MD @ 07/06/2023 11:44:53 AM (Electronically Signed)
--- NOTE | 2023-07-06 10:28 | ED_ITS ---
HPI - General Adult General Date Seen: 07/06/23 Chief complaint: Extremity Pain/Injury, Lower Stated complaint: Diabetic ulcer R foot Time Seen by Provider: 07/06/23 09:57 Source: patient Mode of arrival: ambulatory Limitations: no limitations History of Present Illness HPI narrative: Patient is a 47-year-old male with history of diabetes. He tells me that he had seen Dr. Aleman in the past for a callus area on his right foot, plantar surface. He says this was shaved down and reportedly was healing well. He was supposed have a follow-up appointment which he says that Dr. Aleman rescheduled and then the rescheduled appointment was canceled due to Dr. Aleman's knee surgery. He has not seen anybody else about his foot. He notes it has seemed to be getting more firm on the bottom of his foot and then today he noted drainage. He does not have good sensation in that foot but does have some burning pain in his ankle. Notes history of prior fracture and hardware in the right foot. He has not had fevers or other systemic complaints. He does smoke, drinks daily. Related Data Home Medications Medication Instructions Recorded Confirmed sildenafil 100 mg tablet 50 - 100 mg PO Q24H PRN 10/20/22 05/12/23 atorvastatin 20 mg tablet 20 mg PO HS 11/02/22 05/12/23 apixaban 5 mg tablet 5 mg PO BID 11/17/22 05/12/23 empagliflozin 10 mg tablet 10 mg PO QAM 03/28/23 05/12/23 (Jardiance) furosemide 20 mg tablet 20 mg PO DAILY 05/03/23 05/12/23 pantoprazole 40 mg tablet,delayed 40 mg PO DAILY 05/03/23 05/12/23 release Previous Rx's Medication Instructions Recorded albuterol sulfate 90 mcg/actuation 2 puff inhalation Q4-6H PRN 10/21/22 aerosol inhaler (Ventolin HFA) shortness of breath or wheezing #8.5 grams tadalafil 20 mg tablet (Cialis) 20 mg PO QDAY PRN sexual activity 12/21/22 #10 tabs metoprolol succinate 50 mg 50 mg PO BID #540 tabs 03/01/23 tablet,extended release 24 hr losartan 50 mg tablet 50 mg PO QDAY #90 tabs 06/08/23 ciprofloxacin HCl 500 mg tablet 500 mg PO Q12H #14 tabs 07/06/23 clindamycin HCl 300 mg capsule 300 mg PO QID #28 caps 07/06/23 (Cleocin HCl) Allergies Allergy/AdvReac Type Severity Reaction Status Date / Time No Known Drug Allergies Allergy Verified 07/06/23 09:53 Review of Systems Status of ROS: Reports: 10 or more systems reviewed and unremarkable except as noted in History and below PFSH [facility] Medical History (Updated 07/06/23 @ 12:54 by Corie Cadet MD) Atrial fibrillation ?I48.91 - Unspecified atrial fibrillation (ICD-10) Corns and callosities ?L84 - Corns and callosities (ICD-10) Daily consumption of alcohol ?Z78.9 - Other specified health status (ICD-10) Atrial fibrillation with RVR ?I48.91 - Unspecified atrial fibrillation (ICD-10) COPD (chronic obstructive pulmonary disease) ?J44.9 - Chronic obstructive pulmonary disease, unspecified (ICD-10) Tobacco abuse (11/22/14) ?Z72.0 - Tobacco use (ICD-10) Hypertension (09/13/14) ?I10 - Essential (primary) hypertension (ICD-10) Hyperlipidemia ?E78.5 - Hyperlipidemia, unspecified (ICD-10) Erectile dysfunction (09/25/14) ?N52.9 - Male erectile dysfunction, unspecified (ICD-10) Chronic pain of left ankle ?M25.572 - Pain in left ankle and joints of left foot (ICD-10) ?G89.29 - Other chronic pain (ICD-10) Type 2 diabetes mellitus without complications ?E11.9 - Type 2 diabetes mellitus without complications (ICD-10) Surgical History (Updated 05/03/23 @ 22:54 by Vincenzo Bautista MD) History of cardiac radiofrequency ablation ?Z98.890 - Other specified postprocedural states (ICD-10) History of vasectomy (2007) ?Z98.52 - Vasectomy status (ICD-10) History of foot surgery (09/2015) ?Z98.890 - Other specified postprocedural states (ICD-10) Family History Mother Breast cancer Heart disease CHF (congestive heart failure) Maternal Grandfather Heart disease Brother Cystic fibrosis Diabetes Social History Narrative: , 2 kids, 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 1 ppd smoker, daily ETOH (5-6 drinks) Highest level of school completed/degree received: high school graduate Smoking Status: Never smoker Do you use any of these nicotine containing products: None Second hand tobacco smoke exposure: Yes How often do you have a drink containing alcohol: 4 or more times a week Alcohol type: beer How many standard drinks containing alcohol do you have on a typical day: 3 or 4 How often do you have six or more drinks on one occasion: Never AUDIT-C Alcohol total score: 5 Non-prescribed substance use: denies use Caffeine: Yes (rarely) Little interest or pleasure in doing things: not at all Feeling down, depressed, or hopeless: several days service: No Exam Narrative: Exam Narrative: Vital signs as noted above. In general, an alert, nontoxic male. Head: Normocephalic, atraumatic. Eyes: Pupils are equal reactive. Extraocular movements are full. Conjunctivae are normal. ENT: Mucous membranes are moist. Throat is normal. Neck: Supple without lymphadenopathy. Heart: Regular rate and rhythm. No murmur or rub. Lungs: Clear bilaterally. No increased work of breathing, crackles or wheezes. Abdomen: Soft and nontender. No organomegaly. Extremities: Pulses felt in both feet. Paucity of hair growth. On the plantar surface of the right foot there is an area of induration and yellow discoloration of the skin. There is an opening in what appears to be a previously debrided area which drains purulent bloody fluid with palpation of the foot. There is no significant erythema, no lymphangitic streaking, no significant edema. Capillary refill is brisk, sensation significantly decreased over the bottom of the foot. Neurologic: Patient is alert and oriented to person and place. Speech is fluent. Face is symmetric. Moves all extremities equally. Affect: Normal. Skin: Warm and dry. Well perfused. Const: Vital Signs, click to edit/add: Vital Signs - 24 hr 07/06/23 09:48 Temperature 98.5 F Pulse Rate [Right Pulse Oximeter] 77 Respiratory Rate 16 Blood Pressure [Ri ght Upper Arm] 184/82 H Pulse Oximetry 98 Oxygen Delivery Me thod Room Air Course Course ED Course: I elected to do some labs and do CT scan to evaluate better this fluid collection, make sure was not tracking toward his hardware and evaluate for possible osteomyelitis. I also checked labs, these are reassuring with a white blood cell count of 8.5 minimally abnormal diff with the left shift of 73%. Metabolic panel was unremarkable, blood sugar is 126, CRP mildly elevated at 1.9. CT scan by my review showed a fluid collection in the expected area on the plantar aspect of the foot, this appears to be well circumscribed without tracking deeper into the foot. There is some lucency around his hardware as well as some gas noted in the fluid collection. Radiology read is as follows:FINDINGS: There is a soft tissue wound involving the plantar forefoot with associated superficial subcutaneous collection. The collection measures approximately 3.3 x 2.1 x 0.9 cm in size and contains small locules of gas. No radiopaque foreign body within the plantar soft tissues. No gas tracking remote from that area. No adjacent acute bone destruction to suggest acute osteomyelitis. Postsurgical changes involving the 1st metatarsal bone. First metatarsal bone appears healed with mild deformity. There is lucency adjacent to the head of a screw at the medial 1st metatarsal head level on coronal image #44 series 6 likely indicating loosening. There is arthrosis of the 1st MTP joint space. The dorsal plate focally abuts the articular surface of the base of the 1st metatarsal bone. Degenerative changes of the ankle joint space with subchondral cystic change involving the talar dome likely indicating grade 4 cartilage loss. Plantar calcaneal spur. Sequelae of remote injury of the interosseous membrane between the distal tibia and fibula. IMPRESSION: 1. Plantar forefoot ulcer with associated 3.3 cm superficial subcutaneous collection that contains gas. 2. No adjacent bone destruction to suggest osteomyelitis. 3. Postsurgical changes involving the 1st metatarsal bone. Lucency adjacent to the head of a screw at the medial metatarsal head level suggesting loosening. The 1st metatarsal bone appears healed with mild deformity. Arthrosis of the 1st MTP joint space. I discussed his case with Dr. Aleman. Based on his recommendation I opened the wound further & plan was to irrigate it well, antibiotics and outpatient follow-up. Dr. Aleman was able to come see him in the ER as well so will further evaluate. Wound debrided and explored by Dr. Aleman, we will place a dressing. Antibiotics clindamycin and Cipro prescribed. Strict instructions to return any time if worsening, otherwise Dr. Aleman made him an appointment in clinic for 145 on Tuesday. Vital Signs Vital signs: Initial Vital Signs Temperature 98.5 F 07/06/23 09:48 Temperature Source Temporal Artery Scan 07/06/23 09:48 Pulse Rate 77 07/06/23 09:48 Pulse Rhythm Regular 07/06/23 09:48 Pulse Strength 3+ Normal 07/06/23 09:48 Respiratory Rate 16 07/06/23 09:48 Blood Pressure 184/82 H 07/06/23 09:48 Blood Pressure Mean 116 H 07/06/23 09:48 Blood Pressure Position Sitting 07/06/23 09:48 Pulse Oximetry 98 07/06/23 09:48 Oxygen Delivery Method Room Air 07/06/23 09:48 Vital Signs Temperature 98.5 F 07/06/23 09:48 Pulse Rate 77 07/06/23 09:48 Respiratory Rate 16 07/06/23 09:48 Blood Pressure 184/82 H 07/06/23 09:48 Pulse Oximetry 98 07/06/23 09:48 Oxygen Delivery Method Room Air 07/06/23 09:48 Temperature 98.5 F 07/06/23 09:48 Pulse Rate 77 07/06/23 09:48 Respiratory Rate 16 07/06/23 09:48 Blood Pressure 184/82 H 07/06/23 09:48 Pulse Oximetry 98 07/06/23 09:48 Oxygen Delivery Method Room Air 07/06/23 09:48 Medical Decision Making Lab Data Labs: Lab Results 07/06/23 07/06/23 Range/Units 10:23 10:50 WBC 8.48 (4.50-11.00) K/uL RBC 4.50 (4.30-5.90) m/uL Hgb 14.6 (13.5-17.5) gm/dL Hct 44.0 (37.0-53.0) % MCV 98 (80-100) fL MCH 32 (26-34) pg MCHC 33 (32-36) gm/dL RDW Coeff of Kay 12.9 (11.5-15.5) % Plt Count 214 (140-440) K/uL Neut % (Auto) 73.2 H (42.0-72.0) % Lymph % (Auto) 16.3 L (20-44) % [place] % (Auto) 8.8 (0.0-11.0) % Eos % (Auto) 1.5 (0.0-7.0) % Baso % (Auto) 0.1 (0.0-3.0) % Neut # (Auto) 6.20 (1.7-7.0) K/uL Lymph # (Auto) 1.40 (0.90-2.90) K/uL [place] # (Auto) 0.70 (0.00-0.90) K/UL Eos # (Auto) 0.13 (0.00-0.50) K/uL Baso # (Auto) 0.01 (0.00-0.30) K/uL Abs Immat Gran (auto) 0.01 (0.00-0.30) K/uL Imm/Tot Granulo (auto) 0.1 % Sodium 136 (135-149) mmol/L Potassium 4.5 (3.6-5.1) mmol/L Chloride 104 (96-114) mmol/L Carbon Dioxide 23 (20-32) mmol/L Anion Gap 9 (7-15) mEq/L BUN 10 (5-24) mg/dL Creatinine 0.7 (0.5-1.5) mg/dL Estimated Creat Clear 151.68 Estimated GFR 114 ml/min Glucose 126 H (60-115) mg/dL Calcium 9.2 (8.4-10.6) mg/dL C-Reactive Protein 1.9 H (0.5-1.0) mg/dL POC Creatinine 0.7 (0.6-1.3) mg/dl Discharge Plan Discharge Clinical Impression: Diabetes, Abscess of right foot Patient Disposition: Home, Self-Care Condition: Improved Instructions: Abscess (ED) Additional Instructions: Antibiotics as prescribed. Follow up with Dr. Aleman at 1:45 a.m. on Tuesday. Return to the ER at any time before then if you have significant worsening redness, swelling, fevers, chills or other acute worsening. Activity Level: No Restrictions Discharge Diet: Regular Prescriptions: New clindamycin HCl [Cleocin HCl] 300 mg capsule 300 mg PO QID Qty: 28 0RF ciprofloxacin HCl 500 mg tablet 500 mg PO Q12H Qty: 14 0RF No Action apixaban 5 mg tablet 5 mg PO BID furosemide 20 mg tablet 20 mg PO DAILY pantoprazole 40 mg tablet,delayed release (DR/EC) 40 mg PO DAILY sildenafil 100 mg tablet 50 - 100 mg PO Q24H PRN tadalafil [Cialis] 20 mg tablet 20 mg PO QDAY PRN (Reason: sexual activity) Qty: 10 5RF Rx Instructions: administer approximately 30min before sexual activity; do not use more than 1 dose per 24hrs atorvastatin 20 mg tablet 20 mg PO HS Jardiance 10 mg tablet 10 mg PO QAM albuterol sulfate [Ventolin HFA] 90 mcg/actuation HFA aerosol inhaler 2 puff inhalation Q4-6H PRN (Reason: shortness of breath or wheezing) Qty: 8.5 2RF metoprolol succinate 50 mg tablet extended release 24 hr 50 mg PO BID Qty: 540 1RF losartan 50 mg tablet 50 mg PO QDAY Qty: 90 1RF Follow Up/Referrals: Vincenzo Bautista MD [Primary Care Provider] - Stand Alone Forms: [facility] Info Instructions
[2023-07-06 10:33] LABS: Basophils Absolute Auto 0.01 K/uL (0.00-0.30); Basophils Percent Auto 0.1 % (0.0-3.0); Eosinophils Absolute Auto 0.13 K/uL (0.00-0.50); Eosinophils Percent Auto 1.5 % (0.0-7.0); Hemoglobin* 14.6 gm/dL (13.5-17.5); Immature Granulocytes Abs Auto 0.01 K/uL (0.00-0.30); Immature Granulocytes Pct Auto 0.1 %; Lymphocytes Percent Auto 16.3 % (20-44); Mean Corpuscular HGB Conc 33 gm/dL (32-36); Mean Corpuscular Hemoglobin 32 pg (26-34); Mean Corpuscular Volume 98 fL (80-100); Monocytes Percent Auto 8.8 % (0.0-11.0); Neutrophils Percent Auto 73.2 % (42.0-72.0); Platelet Count* 214 K/uL (140-440); RDW Coefficient of Variation % 12.9 % (11.5-15.5); White Blood Count* 8.48 K/uL (4.50-11.00)
[2023-07-06 10:36] LABS: Slide Review Reflex No
[2023-07-06 10:42] LABS: Chloride* 104 mmol/L (96-114); Potassium* 4.5 mmol/L (3.6-5.1); Sodium* 136 mmol/L (135-149)
[2023-07-06 10:44] LABS: Creatinine* 0.7 mg/dL (0.5-1.5); Est. Creatinine Clearance* 151.68; Estimated Glomerular Filt Rate 114 ml/min
[2023-07-06 10:45] LABS: Anion Gap 9 mEq/L (7-15); Blood Urea Nitrogen* 10 mg/dL (5-24); Calcium* 9.2 mg/dL (8.4-10.6); Carbon Dioxide* 23 mmol/L (20-32); Glucose* 126 mg/dL (60-115)
[2023-07-06 10:48] LABS: C Reactive Protein* 1.9 mg/dL (0.5-1.0)
[2023-07-06 10:52] LABS: Creatinine, Point-of-Care* 0.7 mg/dl (0.6-1.3)
--- NOTE | 2023-07-06 16:49 | PM.PODCN1 ---
[facility] - Podiatry Data of Consult Time Seen by Provider: 12:30 Date Seen: 07/06/23 Consult date: 07/06/23 Requesting physician: Corie Cadet MD Primary care provider: Vincenzo Bautista MD Consult Narrative Reason for consult: Diabetic foot infection with abscess Narrative: Wilfrido Sears is a 47 year old male presented to ED for a draining area of his right foot. He has had a previous ulceration in this area and noticed callus getting thicker. He started to have increased pain and then noticed drainage from the area. He then presented to the ED. He has not had fever or chills. He denies trauma. he is wearing an offloading shoe. cc:: CC: [facility] Medical History (Updated 07/06/23 @ 12:54 by Corie Cadet MD) Atrial fibrillation ?I48.91 - Unspecified atrial fibrillation (ICD-10) Corns and callosities ?L84 - Corns and callosities (ICD-10) Daily consumption of alcohol ?Z78.9 - Other specified health status (ICD-10) Atrial fibrillation with RVR ?I48.91 - Unspecified atrial fibrillation (ICD-10) COPD (chronic obstructive pulmonary disease) ?J44.9 - Chronic obstructive pulmonary disease, unspecified (ICD-10) Tobacco abuse (11/22/14) ?Z72.0 - Tobacco use (ICD-10) Hypertension (09/13/14) ?I10 - Essential (primary) hypertension (ICD-10) Hyperlipidemia ?E78.5 - Hyperlipidemia, unspecified (ICD-10) Erectile dysfunction (09/25/14) ?N52.9 - Male erectile dysfunction, unspecified (ICD-10) Chronic pain of left ankle ?M25.572 - Pain in left ankle and joints of left foot (ICD-10) ?G89.29 - Other chronic pain (ICD-10) Type 2 diabetes mellitus without complications ?E11.9 - Type 2 diabetes mellitus without complications (ICD-10) Surgical History (Updated 05/03/23 @ 22:54 by Vincenzo Bautista MD) History of cardiac radiofrequency ablation ?Z98.890 - Other specified postprocedural states (ICD-10) History of vasectomy (2007) ?Z98.52 - Vasectomy status (ICD-10) History of foot surgery (09/2015) ?Z98.890 - Other specified postprocedural states (ICD-10) Family History Mother Breast cancer Heart disease CHF (congestive heart failure) Maternal Grandfather Heart disease Brother Cystic fibrosis Diabetes Social History Narrative: , 2 kids, 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 1 ppd smoker, daily ETOH (5-6 drinks) Highest level of school completed/degree received: high school graduate Smoking Status: Never smoker Do you use any of these nicotine containing products: None Second hand tobacco smoke exposure: Yes How often do you have a drink containing alcohol: 4 or more times a week Alcohol type: beer How many standard drinks containing alcohol do you have on a typical day: 3 or 4 How often do you have six or more drinks on one occasion: Never AUDIT-C Alcohol total score: 5 Non-prescribed substance use: denies use Caffeine: Yes (rarely) Little interest or pleasure in doing things: not at all Feeling down, depressed, or hopeless: several days service: No Exam Narrative: Exam Narrative: General: no distress Vascular: palpable pedal pulses, normal CFT all digits Neuro: decreased sensation to light touch. Msk: normal muscle strength. +TTP to the plantar forefoot. no gross deformity. Derm: large callus plantar 3rd metatarsal head with fluctuance. no erythema. mild edema. drainage has stopped. no purulence currently after drainage by Dr. Cadet. following debridement wound measures 3cm x 2.5cm with exposed subcutaneous tissue. no exposed bone or tendon. does not track. labs: WBC 8.48, CRP 1.9 CT: 3.3cm x 2.1cm x 0.9cm fluid collection containing gas. A: Abscess with gas right foot, diabetic ulceration right foot P: discussed treatment with Wilfrido. He is in need of sharp debridement of the wound. I think the abscess is superficial and not tracking down fascial plains but we need to investigate. After debridement wound measurements as above. Deed culture obtained. recommend simple saline moistened wet to dry dressing for now. he will purchase medihoney and apply daily to the wound. continue with offloading shoe. He will start clindamycin and levaquin for broad coverage until cultures complete. Follow up with me next week. If worsening return to ED. Procedure: after verbal consent and sterile prep sharp excisional debridement of the ulceration performed. skin and subcutaneous tissue excised back to healthy bleeding margins. no exposed bone or tendon and does not track or undermine. wound irrigated and sterile dressing applied. Const: Vital Signs, click to edit/add: Vital Signs - 24 hr 07/06/23 09:48 Temperature 98.5 F Pulse Rate [Right Pulse Oximeter] 77 Respiratory Rate 16 Blood Pressure [Ri ght Upper Arm] 184/82 H Pulse Oximetry 98 Oxygen Delivery Me thod Room Air Documenting provider has reviewed patient's vital signs: yes Common normals: no apparent distress Nail Debridement Qualifies If: Qualifiers If:: A patient qualifies for nail debridement if they have: 1 class A finding (Q7) 2 class B findings (Q8) OR 1 class B & 2 class C findings in addition to a primary condition (Q9)
== END 2023-07-06 13:07 | disposition home or self-care (01) ==
PROVIDERS: Emergency Provider Emergency Medicine; PCP Family Medicine
DX: L02.611 Cutaneous abscess of right foot (principal); E11.9 Type 2 diabetes mellitus without complications
CPT/HCPCS: 36415; 73701; 80048; 82565; 85025; 86140; 87070; 99284; Q9967

== ENCOUNTER 2023-07-22 07:49 | Day surgery (SDC) | payer BC, SELFPAY ==
[2023-07-22] MEDS: SODIUM CHLORIDE 0.9 % (FLUSH) 10 ML SYRINGE IVF (08:15)
[2023-07-22] MEDS: LACTATED RINGERS 1000 ML 1,000 ML 100 ML IV (08:15)
[2023-07-22 08:25] VITALS: BP 100/64; PULSE 74; RESP 16; TEMP 37.2; O2SAT 96; BMI 28.3
--- NOTE | 2023-07-22 09:15 | CRLHL7_ITS ---
For Patients: As a result of the Cures Act, medical imaging exams and procedure reports are released immediately into your electronic medical record. You may view this report before your referring provider. If you have questions, please contact your health care provider. Indication: ORIF METATARSAL Technique: Two fluoroscopic images of the right forefoot. Fluoroscopic time 6.9 seconds. IMPRESSION: Fluoroscopic guidance for open reduction internal fixation of the 1st metatarsal. Postop changes distal 3rd metatarsal. Dictated by Vincenzo Florentino MD @ 07/22/2023 3:11:07 PM (Electronically Signed)
[2023-07-22] MEDS: CEFAZOLIN 2 GM INJ IVP (09:55)
[2023-07-22] MEDS: BUPIVACAINE 0.5% 30 ML INJECTION (09:55)
[2023-07-22 10:47] VITALS: BP 120/76; PULSE 62; RESP 16; TEMP 36.8; O2SAT 98
--- NOTE | 2023-07-22 10:50 | W.ANESCHARGE ---
Anesthesia Charges Start Date/Time Anesthesia Start Date: 07/22/23 Anesthesia Start Time: 09:46 Stop Date/Time Anesthesia Stop Date: 07/22/23 Anesthesia Stop Time: 10:51
[2023-07-22 11:00] VITALS: BP 121/72; PULSE 62; RESP 16; O2SAT 100
--- NOTE | 2023-07-22 11:00 | P.PCN_ITS ---
Procedure Note Date Seen: 07/22/23 Date of procedure: 07/22/23 Will [facility] bill your pro fee for this procedure?: No Pre-op diagnosis: Diabetic ulcer right foot Post-op diagnosis: same Procedure: 3rd metatarsal osteotomy right foot Procedure Description: hemostasis: Ankle tourniquet 250 mm Hg materials: Arthrex 2.4 mm cannulated screw x1 complications: None apparent indication for surgery: Patient is longstanding recurrent ulceration plantar 3rd metatarsal head right foot. He had previous fractures of 1st 2nd metatarsals leaving the 3rd metatarsal prominent. She has elected to have surgical correction. Reviewed the procedure, recovery, expectations potential complications. These include but are not limited to: Poor wound healing, infection, nonunion, transfer lesions, deep venous thrombosis, pulmonary embolism and . He understands risks and written consent obtained with all questions answered. procedure in detail : Review patient brought the operating room placed supine position on operating table. IV sedation was initiated local anesthetic injected into the right foot. His prepped and draped in sterile fashion. Standard time-out protocol followed. Right foot was seen we made the tourniquet inflated. Linear incision was made over the 3rd metatarsal phalangeal joint changing the incision slightly lateral to avoid scar tissue. Incision was carried down through skin subcutaneous tissues. Third metatarsal head and neck were identified and a v-shaped osteotomy performed. Capital fragment was elevated and then fixated with a 2.4 mm cannulated screw. Z lengthening was performed on the extensor tendon. This was repaired with 4-0 Vicryl. Wound was thoroughly irrigated normal sterile saline subcutaneous tissues r eapproximated 4-0 Monocryl and skin closed with 4-0 Prolene. Sterile dressing was applied. Tourniquet was released normal capillary fill time returned all digits. Is transferred from OR to PACU vital signs stable vascular status intact. He is given written and verbal postop instructions. He will be discharged per Anesthesia. He is given oxycodone for pain. He Is heel weight-bearing with crutches. Follow up in 2-3 days. Anesthesia: MAC and local Surgeon: Joshua Aleman DPM FACFAS Estimated blood loss (mL): 2 Condition: stable Disposition: same day
--- NOTE | 2023-07-22 11:27 | W.ANESCHARGE ---
Anesthesia Charges Start Date/Time Anesthesia Start Date: 07/22/23 Anesthesia Start Time: 09:46 Stop Date/Time Anesthesia Stop Date: 07/22/23 Anesthesia Stop Time: 10:51
[2023-07-22 11:29] VITALS: BP 132/84; PULSE 63; RESP 16; O2SAT 99
== END 2023-07-22 11:39 | disposition home or self-care (01) ==
PROVIDERS: PCP Family Medicine; Visit Provider Podiatrist
PROC: (CPT 28308; principal; 2023-07-22 09:15)
DX: L97.412 Non-pressure chronic ulcer of right heel and midfoot with fat layer exposed (principal); E11.621 Type 2 diabetes mellitus with foot ulcer
CPT/HCPCS: 28308; 1480; 73620; 82962; C1713; J0665; J0690; J1100; J1885; J2371; J2405; J2704; J3490; J7120

== ENCOUNTER 2024-02-28 09:07 | Outpatient (CLI) | payer BC, SELFPAY | END 2024-02-28 09:08 | disposition home or self-care (01) | PROVIDERS: PCP Family Medicine; Visit Provider Family Medicine | DX: E11.9 Type 2 diabetes mellitus without complications (principal); E78.2 Mixed hyperlipidemia; I10 Essential (primary) hypertension; R19.7 Diarrhea, unspecified; R10.9 Unspecified abdominal pain | CPT/HCPCS: 80048; 80061; 80076; 85025; 86140 ==

== ENCOUNTER 2024-04-30 14:20 | Outpatient (CLI) | payer BC, SELFPAY | END 2024-04-30 14:21 | disposition home or self-care (01) | PROVIDERS: PCP Family Medicine; Visit Provider Family Medicine | DX: I50.9 Heart failure, unspecified (principal); I10 Essential (primary) hypertension; E78.2 Mixed hyperlipidemia; E11.9 Type 2 diabetes mellitus without complications | CPT/HCPCS: 80048; 83880; 84443 ==

== ENCOUNTER 2024-05-04 12:42 | Outpatient (CLI) | payer BC, SELFPAY ==
--- OUTSIDE RECORDS SUMMARY | 2024-05-04 12:44 | XMS_ITS | Encounter Summary ---
Author Organization [email or web address] Address [address] [place] [address] Care Team Providers Care Boom Operator Name Role Phone PcpSaurav MD Primary Care Provider [phone] Encounter Details Date Type Department Care Team (Late st Contact Info) Description 10/04/2012 [facility] [address] [place] [id number] Ashlee Thakkar MD [address] [place] [id number] PREFERRED ONE Social History Tobacco Use Types Packs/Day Years Used Date Smoking Tobacco: Never Assessed Sex and Gender Information Value Date Recorded Sex Assigned at Not on file Gender Identity Not on file Sexual Orientation Not on file documented as of this encounter Progress Notes * Ashlee Thakkar MD - 10/04/2012 12:00 AM CST LY PRACTITIONER documented in this encounter Plan of Treatment Not on file documented as of this encounter Visit Diagnoses Not on filedocumented in this encounter Care Teams Boom Operator Relationship Specialty Start Date [place] [address] PCP - General 09/17/13 documented as of this encounter
--- OUTSIDE RECORDS SUMMARY | 2024-05-04 12:44 | XMS_ITS | Clinical Summary ---
Author Organization [facility] Address [address] [place] [address] Care Team Providers Care Crutch Maker Name Role Phone Pcp, Pt Declines Primary Care Provider [phone] Source Comments You are receiving this document as you are listed as the primary care provider,follow-up provider, or the patient has been referred to you for consultation.This is in compliance with the Medicare and[facility] EHR Incentive Program,which states Providers who transition their patient to another setting of careor provider of care or refers their patient to another provider of care shouldprovide summary care record for each transition of care or referral. [facility] Allergies No known active allergies Medications No known medications Active Problems No known active problems Immunizations Name Administration Dates Next Due Flu Vac (3+ yrs) 10/07/2012(Deferred: Patient Re fused) PPSV23 (Pneumovax) 10/07/2012(Deferred: Patient Refused) Social History Tobacco Use Types Packs/Day Years Used Date Smoking Tobacco: Every Day Cigarettes Smokeless Tobacco: Never Comments:2 cigs per day Alcohol Use Standard Drinks/Week Comments No 0 (1 standard drink = 0.6 oz pur e alcohol) Sex and Gender Information Value Date Recorded Sex Assigned at Not on file Gender Identity Not on file Sexual Orientation Not on file Last Filed Vital Signs Vital Sign Reading Time Taken Comments Blood Pressure 126/82 10/07/2012 7:25 AM UTILITY ENGINEER Pulse 82 10/07/2012 7:25 AM UTILITY ENGINEER Temperature 36.7 ??C (98 ??F) 10/07/2012 7:25 AM UTILITY ENGINEER Respiratory Rate 14 10/07/2012 7:25 AM UTILITY ENGINEER Oxygen Saturation 95% 10/07/2012 7:25 AM UTILITY ENGINEER Inhaled Oxygen Concentration - - Weight 130.2 kg (287 lb) 06/27/2017 1:25 PM UTILITY ENGINEER Height 188 cm (6' 2) 06/27/2017 1:25 PM UTILITY ENGINEER Body Mass Index 36.85 06/27/2017 1:25 PM UTILITY ENGINEER Plan of Treatment Health Maintenance Due Date Last Done Comments Colon Cancer Screening Plan Due 1975 Hep C Screening (Preventive Services) 1975 HIV Screening (Preventive Services) 1991 Adult Preventive Visit 1993 DTaP/Tdap/Td (1 - Tdap) 1994 HepB (1) 1994 Cholesterol 2010 COVID-19 Vaccine (1 - 2023-2 5 season) 2024 Influenza (#1) 2024 Zoster/Shingles (1 of 2) 2025 HepA Aged Out No longer eligi ble based on patient's age to complete this topic Hib Aged Out No longer eligi ble based on patient's age to complete this topic IPV (Polio) Aged Out No longer eligi ble based on patient's age to complete this topic MCV4 Aged Out No longer eligi ble based on patient's age to complete this topic Pneumococcal Aged Out No longer eligi ble based on patient's age to complete this topic Medical Devices Implanted Type Area Director Of Product Design Device Identifier Shelf Expiration Date Model / Serial / Lot Plt Lcp T 2.0x53 2h/7h - [id number] Implanted:Qty: 1 on 10/05/2012 by Garth Nails MD at [facility] DEVICE Left: [employer] [id number] / / Description:CUT IN 2 PIECES Scr Jose Cruz Sftp T6 2.0x22 - [id number] Implanted:Qty: 3 on 10/05/2012 by Garth Nails MD at [facility] DEVICE Left: [employer] [id number] / / Scr Jose Cruz Sftp T6 2.0x28 - [id number] Implanted:Qty: 1 on 10/05/2012 by Garth Nails MD at [facility] DEVICE Left: [employer] [id number] / / Scr Lk Sftp T6 2.0x14 - [id number] Implanted:Qty: 1 on 10/05/2012 by Garth Nails MD at [facility] DEVICE Left: [employer] [id number] / / Scr Jose Cruz Sftp T6 2.0x18 - [id number] Implanted:Qty: 1 on 10/05/2012 by Garth Nails MD at [facility] DEVICE Left: [employer] [id number] / / Scr Lk Sftp T6 2.0x28 - [id number] Implanted:Qty: 1 on 10/05/2012 by Garth Nails MD at [facility] DEVICE Left: [employer] 201.898 / / Scr Jose Cruz Sftp T6 2.0x38 - [id number] Implanted:Qty: 2 on 10/05/2012 by Garth Nails MD at [facility] DEVICE Left: [employer] [id number] / / Scr Jose Cruz Sftp T6 2.0x30 - [id number] Implanted:Qty: 2 on 10/05/2012 by Garth Nails MD at [facility] DEVICE Left: [employer] [id number] / / Scr Jose Cruz Sftp T6 2.0x24 - [id number] Implanted:Qty: 3 on 10/05/2012 by Garth Nails MD at [facility] DEVICE Left: [employer] [id number] / / Scr Jose Cruz Sftp Ss 3.5x40 F-Thrd - [id number] Implanted:Qty: 1 on 10/05/2012 by Garth Nails MD at [facility] DEVICE Left: [employer] 204.840 / / Scr Jose Cruz Sftp T6 2.0x36 - [id number] Implanted:Qty: 3 on 10/05/2012 by Garth Nails MD at [facility] DEVICE Left: [employer] [id number] / / Plt Lcp T 2.0x53 3h/7h - [id number] Implanted:Qty: 1 on 10/05/2012 by Garth Nails MD at [facility] DEVICE Left: [employer] [id number] / / Description:CUT IN 2 PIECES Scr Jose Cruz Sftp T6 2.0x26 - [id number] Implanted:Qty: 1 on 10/05/2012 by Garth Nails MD at [facility] DEVICE Left: [employer] [id number] / / Plt Lcp Y 2.0x55 3h/7h - [id number] Implanted:Qty: 1 on 10/05/2012 by Garth Nails MD at [facility] DEVICE Left: [employer] 247.350 / / Description:CUT IN 2 PIECES Advance Directives * Full Code (Latest Code Status on File) Date Activated Date Inactivated Comments 10/05/2012 3:20 PM 10/07/2012 4:30 PM * Full Code Date Activated Date Inactivated Comments 09/26/2012 10:37 PM 09/28/2012 4:19 PM * Full Code Date Activated Date Inactivated Comments 09/26/2012 8:57 PM 09/26/2012 10:37 PM Care Teams Crutch Maker Relationship Specialty Start Date End Date Pcp, [place] [address] PCP - General 09/17/13
--- OUTSIDE RECORDS SUMMARY | 2024-05-04 12:44 | XMS_ITS | Encounter Summary ---
Author Organization [facility] Address [address] [place] [address] Care Team Providers Care African Studies Professor Name Role Phone PcpSaurav MD Primary Care Provider Encounter Details Date Type Department Care Team (Late st Contact Info) Description 10/05/2012 Consent for Procedure/Treatme [facility] Department RH INFORMED CONSENT RECORD Social History Tobacco Use Types Packs/Day Years Used Date Smoking Tobacco: Never Assessed Sex and Gender Information Value Date Recorded Sex Assigned at Not on file Gender Identity Not on file Sexual Orientation Not on file documented as of this encounter Progress Notes * [facility], PROVIDER - 10/05/2012 12:00 AM CST TABLE WORKER documented in this encounter Plan of Treatment Not on file documented as of this encounter Visit Diagnoses Not on filedocumented in this encounter Care Teams African Studies Professor Relationship Specialty Start Date End Date [place] [address] PCP - General 09/17/13 documented as of this encounter
--- OUTSIDE RECORDS SUMMARY | 2024-05-04 12:44 | XMS_ITS | Clinical Summary ---
Author Organization [facility] Address [place], [place] [address] Care Team Providers Care Biodiesel Division Manager Name Role Phone Vincenzo Bautista MD Primary Care Provider + Allergies No known active allergies Medications Medication Sig Dispensed Refills Start Date End Date Status losartan (COZAAR) 50 mg tabletIndications:Hyp ertension Take 1 tablet by mouth once daily. 90 tablet 3 12/04/2015 Active blood sugar diagnostic (ACCU-CHEK SMARTVIEW TEST STRIP) stripIndications:Type 2 diabetes mellitus without complication (HC) Dispense test strips and lancets covered by pt ins. NIDDM- type II. Test 1-2 times / daily. 100 Each 5 12/04/2015 Active sildenafil citrate (VIAGRA) 50 mg tabletIndications:Oth er male erectile dysfunction Take 1 tablet by mouth once daily if needed for Erectile Dysfunction. Take 30min to 4 hours before sexual activity. Max 100mg/24hr 6 tablet 6 12/04/2015 Active Ventolin HFA 90 mcg/actuation inhaler INHALE TWO PUFFS BY MOUTH EVERY 4 TO 6 HOURS NEEDED FOR SHORTNESS OF BREATH OR WHEEZING 10/21/2022 Active Eliquis 5 mg tablet TAKE ONE TABLET BY MOUTH EVERY MORNING AND TAKE ONE TABLET BY MOUTH EVERY EVENING 11/10/2022 Active atorvastatin (LIPITOR) 20 mg tablet Take 20 mg by mouth once daily. 10/21/2022 Active Jardiance 10 mg tablet Take 10 mg by mouth once daily. 11/10/2022 Active durable medical equipment (DME)Indications:Diab etic ulcer of right midfoot associated with type 2 diabetes mellitus, limited to breakdown of skin (HC) [phone] Squared Toe Post Op Shoe, Large 1 Each 02/16/2023 Active metoprolol succinate (TOPROL XL) 50 mg sustained-release tablet 50 mg two times daily. 0 02/23/2023 Active Active Problems Problem Noted Date Diagnosed Date Type 2 diabetes mellitus without complication Status post ORIF of fracture of ankle 11/22/2014 Tobacco abuse 11/22/2014 ED (erectile dysfunction) 09/25/2014 Hypertension 09/13/2014 Resolved Problems Problem Noted Date Diagnosed Date Resolved Date Diabetes mellitus 09/25/2014 09/11/2015 Obesity, unspecified 09/13/2014 016 Encounters Date Type Department Care Team Description 05/01/2024 Travel 05/01/2024 Telephone [facility] [id number] [facility] [address] [place] [address] Kolby Monson MD Concerns 04/25/2024 8:00 AM CDT Office Visit [facility] [address] [place] [address] Joshua Aleman, DPM Post-op (Right foot, 6 month post op, DOS 07/22/23) 04/25/2024 Travel from Last 3 Months Immunizations Name Administration Dates Next Due Hepatitis B (Adult) 10/11/2014 Td (Age >=7 Years) 09/16/1998 Family History Medical History Relation Name Comments Diabetes Brother 1 cystic fibrosis Good Health Brother 2 2 other brother s Hyperlipidemia Father Hypertension Father Diabetes Mother Diabetes Paternal Grandfather Diabetes Paternal Uncle Relation Name Status Comments Brother 1 Brother 2 Father Alive Mother Alive Paternal Grandfather Paternal Uncle Social History Tobacco Use Types Packs/Day Years Used Date Smoking Tobacco: Former Cigarettes 1 15 Smokeless Tobacco: Never Tobacco Cessation:Counseling Given: Yes Comments:Quit 2 weeks ago Alcohol Use Standard Drinks/Week Comments Not Currently 21 (1 standard drink = 0.6 oz pu re alcohol) 3-6 beers/day Social Connections Answer Date Recorded Frequency of Communication with Friends and Fami ly Not on file 11/18/2022 Sex and Gender Information Value Date Recorded Sex Assigned at Not on file Gender Identity Not on file Sexual Orientation Not on file Obstetrics History Last Filed Vital Signs Vital Sign Reading Time Taken Comments Blood Pressure 155/76 04/25/2024 8:03 AM CDT Pulse 122 04/25/2024 8:03 AM CDT sees PCP Tuesday due to bp and pulse changes since medication adjustments Temperature 37 ??C (98.6 ??F) 04/28/2023 6:0 0 AM CDT Respiratory Rate 14 04/28/2023 6:00 AM CDT Oxygen Saturation 98% 04/25/2024 8:0 3 AM CDT Inhaled Oxygen Concentration - - Weight 102.5 kg (226 lb) 10/26/2023 7:5 9 AM CDT Height 188 cm (6' 2) 08/22/2023 1:21 PM FORENSIC MANAGER Body Mass Index 29.02 08/22/2023 1:21 PM FORENSIC MANAGER Plan of Treatment Upcoming Encounters Date Type Department Care Team (Late st Contact Info) Description 05/04/2024 1:00 PM CDT Ancillary Procedure [facility] & [address] [address] Health Maintenance Due Date Last Done Comments Pneumococcal series for age 6-64 (1 of 2 - PCV) 1981 Tdap 1986 HIV for age 15-65 1990 Hepatitis C screening for ag e 18-79 1993 Tetanus booster 09/16/2008 09/16/1998 Depression screening for age 12+ 12/03/2016 12/04/19 16 Colonoscopy through age 75 2020 Lipids for age 45-75 12/03/2020 12/04/2015, 11/22/2014, 09/13/2014 COVID-19 vaccine series ( season) 2024 08/11/2021, 12/05/2020, 11/15/2020 Influenza for age 9-49 04/15/2024 BMI (ht and wt on same day) for age 18+ 08/22/2024 08/22/2023, 03/14/2023, 11/18/2022, Additional history exists Goals Goal Patient Goal Type Associated Problems Recent Progress Patient-Stated? Author BLOOD PRESSURE - MAINTAINS BP less than 140/90 Blood Pressure Alonso Linder MD Medical Devices Implanted Type Area Traffic Safety Administrator Device Identifier Shelf Expiration Date Model / Serial / Lot [id number] - [id number] Implanted:Qty: 2 on 09/12/2015 by Joshua Aleman DPM at [facility] Right: Foot [employer] [id number] / / Description:locking screw 2. 7mmx 18mm [id number] - [id number] Implanted:Qty: 1 on 09/12/2015 by Joshua Aleman DPM at [facility] Right: Foot [employer] [id number] / / Description:2.7mm x 20mm [id number]-S-[id number] ate - [id number] Implanted:Qty: 1 on 09/12/2015 by Joshua Aleman DPM at [facility] Right: Foot [employer] [id number] -PLATE / / Description:T Plate [id number] - [id number] Implanted:Qty: 1 on 09/12/2015 by Joshua Aleman DPM at [facility] Right: Foot [employer] [id number] / / Description:2.7mm x16mm [id number] - [id number] Implanted:Qty: 1 on 09/12/2015 by Joshua Aleman DPM at [facility] Right: Foot [employer] [id number] / / Description:bone screw 2.7mm x 24mm Procedures Procedure Name Priority Date/Time Associated Diagnosis Comments EKG 12 LEAD Routine 05/01/2024 3:30 PM CDT Persistent atrial fibrillation (HC) LIPID PANEL W REFLEX MEASURED LDL Routine 12/04/2015 2:58 PM CDT Type 2 diabetes mellitus without complication (HCC) from Last 3 Months or Most Recently Relevant to Health Maintenance Results * (ABNORMAL) LIPID PANEL W REFLEX MEASURED LDL (12/04/2015 2:58 PM CDT) [facility] CHOLESTEROL,TOTAL 235(H) 100 - 199 mg/dL 12/05/2015 10:02 AM CDT [facility] TRIGLYCERIDES 184(H) <150 mg/dL 12/05/2015 10:02 AM CDT [facility] HDL CHOLESTEROL 41 >40 mg/dL 12/05/2015 10:02 AM CDT [facility] NON-HDL CHOLESTEROL 194(H) <145 mg/dl 12/05/2015 10:02 AM CDT [facility] CHOL/HDL RATIO 5.73(H) <4.50 12/05/2015 10:02 AM CDT [facility] LDL CHOLESTEROL 157(H) <=130 mg/dL 12/05/2015 10:02 AM CDT [facility] PATIENT STATUS NON-FASTI NG 12/05/2015 10:02 AM CDT [facility] Blood specimen (specimen) BLOOD SPECIMEN / Unknown Venipuncture / Unknown 12/04/2015 2:58 PM CDT 12/05/2015 9:32 AM CDT Alonso Alarcon MD CHEMISTRY [facility] [address] [place] [address], from Last 3 Months or Most Recently Relevant to Health Maintenance Advance Directives * Full Code (Latest Code Status on File) Date Activated Date Inactivated Comments 04/27/2023 3:35 PM 04/28/2023 1:44 PM Question Answer Comments Code Status Discussion: Other * Full Code Date Activated Date Inactivated Comments 11/24/2022 11:49 AM 11/24/2022 11:31 PM Question Answer Comments Code Status Discussion: Reviewed Preferences Care Teams Biodiesel Division Manager Relationship Specialty Start Date End Date Vincenzo Bautista MD [address] [place] [id number] PCP - General Family Practice 08/21/21
--- OUTSIDE RECORDS SUMMARY | 2024-05-04 12:44 | XMS_ITS | Encounter Summary ---
Author Organization [facility] Address [address] [place] [address] Care Team Providers Care Blind Eyeletter Name Role Phone PcpSaurav MD Primary Care Provider Encounter Details Date Type Department Care Team (Late st Contact Info) Description 09/26/2012 Consent for Procedure/Treatme [facility] Department RH INFORMED CONSENT RECORD Social History Tobacco Use Types Packs/Day Years Used Date Smoking Tobacco: Never Assessed Sex and Gender Information Value Date Recorded Sex Assigned at Not on file Gender Identity Not on file Sexual Orientation Not on file documented as of this encounter Progress Notes * [facility], PROVIDER - 09/26/2012 12:00 AM CST OYMENT SERVICES DIRECTOR documented in this encounter Plan of Treatment Not on file documented as of this encounter Visit Diagnoses Not on filedocumented in this encounter Care Teams Blind Eyeletter Relationship Specialty Start Date End Date [place] [address] PCP - General 09/17/13 documented as of this encounter
== END 2024-05-04 12:43 | disposition home or self-care (01) ==
LOC: RAD 12:42
PROVIDERS: PCP Family Medicine; Visit Provider Family Medicine
DX: I50.9 Heart failure, unspecified (principal)
CPT/HCPCS: 93306

== ENCOUNTER 2024-10-16 14:54 | Outpatient (CLI) | payer BC, SELFPAY | END 2024-10-16 14:55 | disposition home or self-care (01) | LOC: FBOREF 14:54 | PROVIDERS: PCP Family Medicine; Visit Provider Family Medicine | DX: Z01.818 Encounter for other preprocedural examination (principal); R19.5 Other fecal abnormalities; I10 Essential (primary) hypertension | CPT/HCPCS: 80048; 85025 ==

== ENCOUNTER 2024-10-22 07:13 | Outpatient (CLI) | payer BC, SELFPAY ==
--- NOTE | 2024-10-22 08:59 | W.ANESCHARGE ---
Anesthesia Charges Start Date/Time Anesthesia Start Date: 10/22/24 Anesthesia Start Time: 08:21 Stop Date/Time Anesthesia Stop Date: 10/22/24 Anesthesia Stop Time: 08:55 Coding CPT Codes CPT Codes: ANES LWR INTST NDSC NOS - 64996 ([id number]) P3 - PATIENT W/SEVERE SYS DISEASE, QX - BARTENDER SERVER SVC W/ MD MED DIRECTION, QK - CAUSTIC ROOM OPERATOR 2-4 CNCRNT ANES PROC
--- NOTE | 2024-10-22 09:29 | W.ANESCHARGE ---
Anesthesia Charges Start Date/Time Anesthesia Start Date: 10/22/24 Anesthesia Start Time: 08:21 Stop Date/Time Anesthesia Stop Date: 10/22/24 Anesthesia Stop Time: 08:55 Coding CPT Codes CPT Codes: ANES LWR INTST NDSC NOS - 85556 ([id number]) P3 - PATIENT W/SEVERE SYS DISEASE, QK - MOLD ENGRAVER 2-4 CNCRNT ANES PROC, QX - FAST FOOD SUPERVISOR SVC W/ MD MED DIRECTION
== END 2024-10-22 07:14 | disposition home or self-care (01) ==
LOC: OP CLINIC 07:14
PROVIDERS: PCP Family Medicine; Visit Provider Internal Medicine
DX: Z12.11 Encounter for screening for malignant neoplasm of colon (principal); D12.3 Benign neoplasm of transverse colon; D12.5 Benign neoplasm of sigmoid colon
CPT/HCPCS: 00811; 45380; 45385; 88305; J2704

== ENCOUNTER 2025-05-06 16:38 | Outpatient (CLI) | payer BC, SELFPAY | END 2025-05-06 16:39 | disposition home or self-care (01) | PROVIDERS: PCP Family Medicine; Visit Provider Family Medicine | DX: E78.2 Mixed hyperlipidemia (principal) | CPT/HCPCS: 80061; 82043; 82570 ==

== ENCOUNTER 2025-05-06 16:58 | Outpatient (CLI) | payer BC, SELFPAY | END 2025-05-06 16:59 | disposition home or self-care (01) | PROVIDERS: PCP Family Medicine; Visit Provider Family Medicine | DX: E11.9 Type 2 diabetes mellitus without complications (principal) | CPT/HCPCS: 82043; 82570 ==